=== PATIENT | female | born 1985 | race African-American/Black ===

== ENCOUNTER 2019-09-09 00:48 | Emergency (ER) | payer OTHER ==
[2019-09-09 00:52] VITALS: RESP 18; TEMP 98.1
[2019-09-09] MEDS ORDERED: SODIUM CHLORIDE 0.9% 1,000 ML IV STA (01:04)
[2019-09-09] MEDS ORDERED: METOCLOPRAMIDE 5 MG/ML 2 ML VIAL IVP STA (01:04)
[2019-09-09] MEDS ORDERED: diphenhydrAMINE 50 MG/ML 1 ML VIAL IVP STA (01:04)
[2019-09-09] MEDS ORDERED: DEXTROSE 5% IN WATER 1,000 ML IV ONE (01:05)
[2019-09-09 01:27] LABS: Anisocytosis Slight; Basophils % (A) 0 %; Eosinophils # (A) 0.2 k/uL (0-0.7); Eosinophils % (A) 2 %; HCT 36.5 % (34.0-46.0); HGB 11.8 gm/dL (11.4-16.0); Hypochromasia Slight; Lymphocytes # (A) 0.8 k/uL (1.0-4.8); Lymphocytes % (A) 9 %; MCH 24.6 pg (25.0-35.0); MCHC 32.3 g/dL (31.0-37.0); MCV 76.3 fL (80.0-100.0); Microcytosis Slight; Monocytes # (A) 0.4 k/uL (0-1.0); Monocytes % (A) 4 %; Neutrophils # (A) 8.2 k/uL (1.3-7.7); Neutrophils % (A) 85 %; Platelet Count 339 k/uL (150-450); RBC 4.79 m/uL (3.80-5.40); WBC 9.6 k/uL (3.8-10.6)
[2019-09-09 01:35] LABS: ALT 18 U/L (9-52); AST 23 U/L (14-36); African American GFR (CKD) >90 (>60 ml/min/1.73 sqM); Albumin 4.5 g/dL (3.5-5.0); Alkaline Phosphatase 59 U/L (38-126); Anion Gap 11 mmol/L; Blood Urea Nitrogen 6 mg/dL (7-17); Calcium 9.3 mg/dL (8.4-10.2); Carbon Dioxide 23 mmol/L (22-30); Chloride 104 mmol/L (98-107); Glucose 108 mg/dL (74-99); Non-African American GFR(CKD) >90 (>60 ml/min/1.73 sqM); Potassium 4.3 mmol/L (3.5-5.1); Sodium 138 mmol/L (137-145); Total Bilirubin 0.8 mg/dL (0.2-1.3); Total Protein 8.3 g/dL (6.3-8.2)
--- NOTE | 2019-09-09 01:58 | ED ---
Nausea/Vomiting/Diarrhea HPI - General Chief complaint: Nausea/Vomiting/Diarrhea Stated complaint: Vomiting Time Seen by Provider: 09/09/19 00:54 Source: patient Mode of arrival: ambulatory Limitations: no limitations - History of Present Illness Initial comments: 34-year-old female patient who is approximately 8 weeks presents to the emergency department today for evaluation of nausea and vomiting. Patient states that she has been vomiting daily for the last week. States she's been unable to keep down food or fluids. States she feels like she is dehydrated. States her muscles are sore. She denies any abdominal pain, cramping, vaginal bleeding, or vaginal discharge. She is . She denies any fever, chills, or diarrhea. Patient denies any recent rash, shortness breath, chest pain, back pain, numbness, tingling, dizziness, weakness, hematuria, dysuria, urinary urgency, urinary frequency, headache, visual changes, or any other complaints. She denies any recent travel or sick contacts. - Related Data Home Medications Medication Instructions Recorded Confirmed Ferrous Sulfate [Feosol] 325 mg PO DAILY 09/27/16 10/01/16 Pnv,Calcium 72/Iron/Folic Acid 1 tab PO DAILY 09/27/16 10/01/16 [ Plus Tablet] Previous Rx's Medication Instructions Recorded Acetaminophen-Codeine 300-30mg 1 - 2 each PO Q4HR PRN #30 tab 10/02/16 [Tylenol w/codeine #3] Ibuprofen [Motrin] 600 mg PO Q6HR PRN #40 tab 10/02/16 Metoclopramide [Reglan] 10 mg PO Q8H PRN #10 tab 09/09/19 Allergies Allergy/AdvReac Type Severity Reaction Status Date / Time No Known Allergies Allergy Verified 10/01/16 02:09 Review of Systems ROS Statement: Those systems with pertinent positive or pertinent negative responses have been documented in the HPI. ROS Other: All systems not noted in ROS Statement are negative. Past Medical History Past Medical History: No Reported History History of Any Multi-Drug Resistant Organisms: None Reported Past Surgical History: Appendectomy, Cholecystectomy, Hernia Repair Past Anesthesia/Blood Transfusion Reactions: No Reported Reaction Past Psychological History: No Psychological Hx Reported Smoking Status: Never smoker Past Alcohol Use History: None Reported Past Drug Use History: None Reported - Past Family History Mother Additional Family Medical History / Comment(s): cholycystectomy General Exam Limitations: no limitations General appearance: alert, in no apparent distress, other (This is a well- developed, well-nourished adult female patient in no acute distress with vital signs upon presentation are temperature 98.1F, pulse is no 4, respirations 18, blood pressure 129/83, pulse ox 100% on room air per) Eye exam: Present: normal appearance, PERRL, EOMI. Absent: scleral icterus, conjunctival injection, periorbital swelling ENT exam: Present: normal exam, normal oropharynx, mucous membranes moist Respiratory exam: Present: normal lung sounds bilaterally. Absent: respiratory distress, wheezes, rales, rhonchi, stridor Cardiovascular Exam: Present: regular rate, normal rhythm, normal heart sounds. Absent: systolic murmur, diastolic murmur, rubs, gallop, clicks GI/Abdominal exam: Present: soft, normal bowel sounds. Absent: distended, tenderness, guarding, rebound, rigid Neurological exam: Present: alert, oriented X3, CN II-XII intact Psychiatric exam: Present: normal affect, normal mood Skin exam: Present: warm, dry, intact, normal color. Absent: rash Course Vital Signs 09/09/19 09/09/19 00:49 02:00 Temperature 98.1 F Pulse Rate 104 H 92 Respiratory 18 18 Rate Blood Pressure 129/83 126/76 O2 Sat by Pulse 100 97 Oximetry - Reevaluation(s) Reevaluation #1: 09/09/19 02:00 Bedside ultrasound was performed, there was evidence for intrauterine , cardiac activity noted. Medical Decision Making - Medical Decision Making 34-year-old female patient who is approximately 8 weeks presents to the emergency department today for evaluation of nausea and vomiting 5 days. Candelario diarrhea. No fever. Vital signs are within normal ranges. Labs reviewed and were unremarkable. No evidence for urinary tract infection. There is an elevated glucose in her urine however she was receiving dextrose 5% as an infusion at time of urine collection. She had no vomiting episodes on the emergency department. Upon reevaluation she is feeling better. Bedside ultrasound did show cardiac activity and intrauterine . She will be discharged to follow-up with her [facility] for recheck in 1-2 days. Return parameters discussed in detail. She verbalizes understanding and agrees with this plan. - Lab Data Result diagrams: 09/09/19 01:17 09/09/19 01:17 Lab Results 09/09/19 09/09/19 09/09/19 Range/Units 01:17 01:17 02:45 WBC 9.6 (3.8-10.6) k/uL RBC 4.79 (3.80-5.40) m/uL Hgb 11.8 (11.4-16.0) gm/dL Hct 36.5 (34.0-46.0) % MCV 76.3 L (80.0-100.0) fL MCH 24.6 L (25.0-35.0) pg MCHC 32.3 (31.0-37.0) g/dL RDW 16.0 H (11.5-15.5) % Plt Count 339 (150-450) k/uL Neutrophils % 85 % Lymphocytes % 9 % Monocytes % 4 % Eosinophils % 2 % Basophils % 0 % Neutrophils # 8.2 H (1.3-7.7) k/uL Lymphocytes # 0.8 L (1.0-4.8) k/uL Monocytes # 0.4 (0-1.0) k/uL Eosinophils # 0.2 (0-0.7) k/uL Basophils # 0.0 (0-0.2) k/uL Hypochromasia Slight Anisocytosis Slight Microcytosis Slight Sodium 138 (137-145) mmol/L Potassium 4.3 (3.5-5.1) mmol/L Chloride 104 (98-107) mmol/L Carbon Dioxide 23 (22-30) mmol/L Anion Gap 11 mmol/L BUN 6 L (7-17) mg/dL Creatinine 0.60 (0.52-1.04) mg/dL Est GFR (CKD-EPI)AfAm >90 (>60 ml/min/1.73 sqM) Est GFR (CKD-EPI)NonAf >90 (>60 ml/min/1.73 sqM) Glucose 108 H (74-99) mg/dL Calcium 9.3 (8.4-10.2) mg/dL Total Bilirubin 0.8 (0.2-1.3) mg/dL AST 23 (14-36) U/L ALT 18 (9-52) U/L Alkaline Phosphatase 59 (38-126) U/L Total Protein 8.3 H (6.3-8.2) g/dL Albumin 4.5 (3.5-5.0) g/dL Lipase 107 (23-300) U/L Urine Color Yellow Urine Appearance Clear (Clear) Urine pH 6.0 (5.0-8.0) Ur Specific [place] 1.011 (1.001-1.035) Urine Protein Negative (Negative) Urine Glucose (UA) 4+ H (Negative) Urine Ketones Negative (Negative) Urine Blood Negative (Negative) Urine Nitrite Negative (Negative) Urine Bilirubin Negative (Negative) Urine Urobilinogen 2.0 (<2.0) mg/dL Ur Leukocyte Esterase Negative (Negative) Disposition Clinical Impression: Vomiting during Disposition: HOME SELF-CARE Condition: Good Instructions (If sedation given, give patient instructions): Nausea and Vomiting in (ED) Additional Instructions: Try to eat small more frequent meals. Start with clear liquid diet and advance as tolerated. Take medication as directed. Follow-up with your primary care physician and your [facility] for recheck as soon as possible. Return to the emergency department immediately for any new, worsening, or concerning symptoms. Prescriptions: Metoclopramide [Reglan] 10 mg PO Q8H PRN #10 tab PRN Reason: Vomiting Is patient prescribed a controlled substance at d/c from ED?: No Referrals: None,Stated [Primary Care Provider] - 1-2 days Time of Disposition: 03:02
[2019-09-09 02:18] VITALS: BP 126/76; PULSE 92
[2019-09-09 02:51] LABS: Appearance,Urine Clear (Clear); Bilirubin,Urine Negative (Negative); Blood,Urine Negative (Negative); Color,Urine Yellow; Glucose,Urine (UA) 4+ (Negative); Ketones,Urine Negative (Negative); Leukocyte Esterase,Urine Negative (Negative); Nitrite,Urine Negative (Negative); Protein,Urine Negative (Negative); Specific Gravity,Urine 1.011 (1.001-1.035)
== END 2019-09-09 03:05 | disposition home or self-care (01) ==
LOC: EC 00:48
DX: O21.9 Vomiting of pregnancy, unspecified (principal); Z3A.08 8 weeks gestation of pregnancy
CPT/HCPCS: 36415; 80053; 81003; 83690; 85025; 96361; 96374; 96375; 99284

== ENCOUNTER → 2019-10-08 | Outpatient (CLI) | payer OTHER ==
--- NOTE | 2019-10-08 11:45 | US ---
EXAMINATION TYPE: Ultrasound OB <= 14 week fetus DATE OF EXAM: 10/08/2019 9:23 AM COMPARISON: NONE CLINICAL HISTORY: 34-year-old female Z36 CONFIRM DATES. Patient states last LMP was in July. Date s. EXAM PERFORMED: Transabdominal (TA) FINDINGS: EXAM MEASUREMENTS: GESTATIONAL AGE / DATING Dates by LMP: Exact LMP unknown Dates by First Scan: No previous, this is first scan Dates by Current Scan for: (12 weeks/2 days) EDC: 04/19/2020 MATERNAL ANATOMY Uterus: 13.5 x 9.3 x 8.0 cm Right Ovary: 5.9 x 4.6 x 4.5 cm - Right cystic appearing lesion with multiple thin internal septations = 5.0 x 4.4 x 3.8 cm Left Ovary: 6.2 x 4.9 x 4.2 cm -Simple cyst measuring = 4.5 x 4.1 x 4.5 cm Post CDS / Adnexa: no free fluid Presence of free fluid: no Presence of subchorionic bleed: Area of 1.4 cm hypoechogenicity inferior to the gestational sac. GESTATION / SURVEY CRL: 5.5 cm (12 weeks/2 days) MSD: seen, not measured Yolk Sac (normal less than 6mm): Not visualized Heart Rate: 160 bpm Rhythm: Normal IUP: Viable IUP Nuchal Translucency 10-14wks (normal less than 3mm): 1.1 mm Date of LMP: Unknown, Beta HcG (if available): Not available at this time IMPRESSION: 1. Single live intrauterine with gestational age of 12 weeks 2 days by LMP. 2. Suspect a small inferior perigestational bleed measuring 1.4 cm. 3. Complex cyst of the right ovary measuring 5.0 cm demonstrating multiple thin internal septations. A resolving hemorrhagic cyst is possible. 6-8 week follow-up recommended to ensure involution. A cyst ic ovarian neoplasm is not excluded at this time. 4. A 4.5 cm simple cyst within the left ovary can also be reassessed at follow-up. 5. In addition, complete survey recommended at 18-20 weeks.
== END | disposition home or self-care (01) ==
LOC: RADUSWWP 09:02
PROVIDERS: ATTEND Obstetrics & Gynecology
DX: Z36.89 Encounter for other specified antenatal screening (principal); O65.5 Obstructed labor due to abnormality of maternal pelvic organs; O34.81 Maternal care for other abnormalities of pelvic organs, first trimester; N83.201 Unspecified ovarian cyst, right side; N83.202 Unspecified ovarian cyst, left side; Z3A.12 12 weeks gestation of pregnancy
CPT/HCPCS: 76801; 76813

== ENCOUNTER → 2020-03-08 | Outpatient (CLI) | payer OTHER | END | disposition home or self-care (01) | LOC: LABWHC1 10:40 | PROVIDERS: ATTEND Obstetrics & Gynecology | DX: Z34.83 Encounter for supervision of other normal pregnancy, third trimester (principal) | CPT/HCPCS: 86850; 86900; 86901 ==

== ENCOUNTER 2020-04-10 19:30 | Outpatient (CLI) | payer OTHER ==
[2020-04-10 20:15] VITALS: BP 120/63; PULSE 97; RESP 18; TEMP 97.4
--- NOTE | 2020-04-11 06:47 | P.MSEPDOC ---
Presenting Problems - Arrival Data Date of Arrival on Unit: 04/10/20 Time of Arrival on Unit: 19:30 Mode of Transport: Ambulatory - Complaint OB-Reason for Admission/Chief Complaint: Pain Comment: constant pain in her back and radiates down her legs, increases when she is up walking Medical History - Information : 6 Para: 5 Term: 4 : 1 Abortions: Spontaneous or Elective: 0 Number of Living Children: 5 - Gestational Age Gestational Age by VALERIO (wks/days): 38 Weeks and 5 Days - History Complications: GDM Review of Systems - Review of Systems Constitutional: No problems Breast: No problems ENT: No problems Cardiovascular: No problems Respiratory: No problems Gastrointestinal: No problems Genitourinary: No problems Musculoskeletal: No problems Neurological: No problems Skin: No problems Vital Signs - Temperature Temperature: 97.4 F Temperature Source: Temporal Artery Scan - Pulse Right Brachial Pulse Rate: 97 Pulse Assessment Method: Automatic Cuff - Respirations Respiratory Rate: 18 Oxygen Delivery Method: Room Air - Blood Pressure Right Arm Blood Pressure: 120/63 Blood Pressure Mean: 82 Blood Pressure Source: Automatic Cuff Medical Screen Scoring (Pre) - Cervical Exam Dilation: 1-3 cm = 1 Effacement: More than 50% = 2 Membranes: Intact - Uterine Contractions Frequency: N/A Duration: N/A Intensity: N/A - Maternal Vital Signs Maternal Temperature: N/A Maternal Blood Pressure: N/A Signs of Preeclampsia: N/A Maternal Respirations: N/A - Maternal Trauma Maternal Trauma: N/A - Assessment - Baby A Baseline FHR: 140 Heart Rate - NICHD Category: Category I (Normal) = 0 NST: Reactive Position: N/A Station: N/A - Total Score - Baby A Total Score - Baby A: 3 - Total Score - Baby B Total Score - Baby B: 3 - Total Score - Baby C Total Score - Baby C: 3 - Level of Risk - Baby A Level of Risk - Baby A: Low (0-5) - Level of Risk - Baby B Level of Risk - Baby B: Low (0-5) - Level of Risk - Baby C Level of Risk - Baby C: Low (0-5) Physician Notification (Pre) - Physician Notified Physician Notified Date: 04/10/20 Physician Notified Time: 19:50 Disposition - Disposition OB Disposition: Triage, Discharge to home Discharge Date: 04/10/20 Discharge Time: 20:15 I agree with the RN Medical Screening Exam: Yes Risk & Benefit of care provided described in d/c instruction: Yes Diagnosis: FALSE LABOR AT OR AFTER 37 COMPLETED WEEKS OF GESTATION
== END 2020-04-10 20:15 | disposition home or self-care (01) ==
LOC: FBPOP 19:30
PROVIDERS: ATTEND Obstetrics & Gynecology
DX: O47.1 False labor at or after 37 completed weeks of gestation (principal); Z3A.38 38 weeks gestation of pregnancy
CPT/HCPCS: 59025; G0463; 99213

== ENCOUNTER 2020-04-14 06:15 | Inpatient (IN) | payer OTHER ==
[2020-04-14] MEDS ORDERED: CARBOPROST TROMETHAMINE 250 MCG/ML 1 ML AMP IM PRN (06:52)
[2020-04-14] MEDS ORDERED: LIDOCAINE 0.5% (PF) 5 MG/ML (50 ML SDV) SQ PRN (06:52)
[2020-04-14] MEDS ORDERED: OXYTOCIN 10 UNIT/ML 1 ML VIAL IM PRN (06:52)
[2020-04-14] MEDS ORDERED: METHYLERGONOVINE 0.2 MG/ML 1 ML AMP IM PRN (06:52)
[2020-04-14] MEDS ORDERED: TERBUTALINE 1 MG/ML VIAL SQ PRN (06:52)
[2020-04-14] MEDS ORDERED: OXYTOCIN 30 UNITS/500 ML NS 30 UNIT in SALINE 1 500ML.BAG IV SCH (07:00)
[2020-04-14] MEDS: LACTATED RINGERS 1,000 ML IV SCH ×2 (07:02→11:51)
[2020-04-14 07:21] LABS: Anisocytosis Slight; Basophils % (A) 0 %; Eosinophils # (A) 0.1 k/uL (0-0.7); Eosinophils % (A) 1 %; HCT 32.7 % (34.0-46.0); HGB 10.6 gm/dL (11.4-16.0); Hypochromasia Moderate; Lymphocytes % (A) 24 %; MCH 25.4 pg (25.0-35.0); MCHC 32.3 g/dL (31.0-37.0); MCV 78.6 fL (80.0-100.0); Mean Platelet Volume 8.1; Microcytosis Slight; Monocytes # (A) 0.5 k/uL (0-1.0); Monocytes % (A) 7 %; Neutrophils # (A) 5.5 k/uL (1.3-7.7); Neutrophils % (A) 66 %; Platelet Count 259 k/uL (150-450); RBC 4.16 m/uL (3.80-5.40); WBC 8.4 k/uL (3.8-10.6)
[2020-04-14 08:27] LABS: Glucose,Whole Blood 113 mg/dL (75-99)
--- NOTE | 2020-04-14 08:28 | P.HPOB ---
History of Present Illness H&P Date: 04/14/20 Chief Complaint: Intrauterine at term: Gestational diabetes Patient is a 35-year-old at 39 weeks 2 days' gestation who arrives for induction of labor. Her course has been complicated by gestational diabetes and late onset of polyhydramnios. Her gestational diabetes was diet controlled and while she did have some early fasting sugars were higher 2 who our postprandials had been fine. She coordinated with endocrine for her sugars. At her last ultrasound she is noted to have baby at greater than the 95th percentile. This in a gestational diabetic is cost for concern due to risk of shoulder dystocia. She however has had several babies that are big and were macrosomic at time of delivery including her last baby that weighed 8 lbs. 9 oz. We had a very long and thorough discussion on recommending section in someone who has had a baby that is macrosomic and diabetic. She refuses this and understands risks of shoulder dystocia including permanent brachial plexus injuries even potentially . There are neurologic issues occur also Accompanied and she understands these risks and refuses to do a section. This was discussed with her on 2 separate occasions in the office and once by phone. She understands my concern and understands that there is a risk that something like shoulder dystocia could Apsley happened during this delivery process. At her last ultrasound there is also notation of polyhydramnios. This was done just 2 days ago and therefore torch titers were not drawn. Likely this is due to her blood sugars. Will order torch titers while she's in the hospital. All other questions are answered for her and her significant other. Artificial rupture membranes was performed and clear fluid is noted. She is dilated 2 cm 80% effaced and -3 station. Clear fluid is noted. A category 1 tracing was noted. Past Medical History Past Medical History: No Reported History Additional Past Medical History / Comment(s): gestational diabetic diet controlled History of Any Multi-Drug Resistant Organisms: None Reported Past Surgical History: Appendectomy, Cholecystectomy, Hernia Repair Past Anesthesia/Blood Transfusion Reactions: No Reported Reaction Past Psychological History: No Psychological Hx Reported Smoking Status: Never smoker Past Alcohol Use History: None Reported Past Drug Use History: None Reported - Past Family History Mother Additional Family Medical History / Comment(s): cholycystectomy Medications and Allergies Home Medications Medication Instructions Recorded Confirmed Type Ferrous Sulfate [Feosol] 325 mg PO DAILY 12/23/16 07/10/20 History Pnv,Calcium 72/Iron/Folic Acid 1 tab PO DAILY 09/27/16 04/14/20 History [ Plus Tablet] Allergies Allergy/AdvReac Type Severity Reaction Status Date / Time No Known Allergies Allergy Verified 04/14/20 06:52 Exam Osteopathic Statement: *. No significant issues noted on an osteopathic structural exam other than those noted in the History and Physical/Consult. Intake and Output 04/13/20 04/14/20 04/14/20 22:59 06:59 14:59 Other: Weight 111.584 kg 111.584 kg - OBG Physical Exam Breast: both: normal (no masses) Abdomen: bowel sounds normal, no diffuse tenderness, no bruit present, no guarding noted, no hepatomegaly, no splenomegaly, no mass Vulva: both: normal Vagina: normal moisture, no discharge Cervix: no lesion, no discharge Uterus: normal size, normal contour Adnexa: both: normal Anus/Rectum: normal perianal skin, no rectal mass, no hemorrhoids, heme negative Results Result Diagrams: 04/14/20 07:05 Abnormal Lab Results - Last 24 Hours (Table) 04/14/20 Range/Units 07:05 Hgb 10.6 L (11.4-16.0) gm/dL Hct 32.7 L (34.0-46.0) % MCV 78.6 L (80.0-100.0) fL RDW 19.0 H (11.5-15.5) %
[2020-04-14] MEDS ORDERED: fentaNYL (PF) 50 MCG/ML 5 ML AMP ONE (11:20)
[2020-04-14] MEDS ORDERED: SODIUM CHLORIDE 0.9% 100 ML BAG ONE (11:20)
[2020-04-14] MEDS ORDERED: ROPIVACAINE 5MG/ML 20ML VIAL ONE (11:20)
[2020-04-14] MEDS ORDERED: WITCH HAZEL 1 EACH MED..PAD TOPICAL PRN (15:21)
[2020-04-14] MEDS ORDERED: LANOLIN CREAM 5 GM TUBE TOPICAL PRN (15:21)
[2020-04-14] MEDS ORDERED: SIMETHICONE 80 MG CHEWABLE PO PRN (15:21)
[2020-04-14] MEDS ORDERED: diphenhydrAMINE 50 MG CAP PO PRN (15:21)
[2020-04-14] MEDS ORDERED: diphenhydrAMINE 25 MG CAP PO PRN (15:21)
[2020-04-14] MEDS ORDERED: diphenhydrAMINE 50 MG/ML 1 ML VIAL IVP PRN ×2 (15:21)
[2020-04-14] MEDS ORDERED: ZOLPIDEM 5 MG TAB PO PRN (15:21)
[2020-04-14] MEDS ORDERED: BENZOCAINE/MENTHOL SPRAY 1 GM/SPRAY AEROSOL TOPICAL PRN (15:21)
[2020-04-14] MEDS ORDERED: HYDROCORTISONE 2.5% RECTAL CREAM 30 GM TUBE RECTAL PRN (15:21)
[2020-04-14] MEDS ORDERED: OXYTOCIN 20 UNITS/1000 ML NS 1,000 ML IV SCH (15:30)
[2020-04-14] MEDS: IBUPROFEN 600 MG TAB PO PRN (15:32)
--- NOTE | 2020-04-14 16:38 | P.PROBDLV ---
Vaginal Delivery Note - . Vaginal Delivery Note: Patient progressed complete and pushing with spontaneous vaginal delivery of a viable male over an intact perineum. Falling deliver the head from left occiput anterior position anterior posterior shoulders were easily delivered with gentle downward upper traction followed by the remainder the baby. Mouth nares were then bulb suctioned and baby was placed mother's abdomen where the umbilical cord was allowed to pulsate first 30 seconds prior to clamping and cutting. Once this was accomplished, baby was attended by nursery personnel. Placenta was then delivered intact Pitocin was added to the IV. scores are 9 and 10 at one and 5 minutes respectively and the weight was 7 lbs. 15 oz. Both mother and baby are stable following delivery.
[2020-04-14] MEDS: ACETAMINOPHEN TAB 325 MG TAB PO PRN (19:37)
[2020-04-14] MEDS: SENNOSIDES-DOCUSATE SODIUM 1 EACH TAB PO SCH (19:37)
[2020-04-14] MEDS: Rhogam IMMUNE GLOBULIN 1,500 UNIT/1 ML IM ONE ×2 (22:34→22:36)
[2020-04-15] MEDS: IBUPROFEN 600 MG TAB PO PRN ×3 (00:57→14:28)
[2020-04-15] MEDS: LACTATED RINGERS 1,000 ML IV SCH (01:16)
[2020-04-15] MEDS: ACETAMINOPHEN TAB 325 MG TAB PO PRN (03:54)
[2020-04-15 06:23] LABS: Anisocytosis Slight; Basophils % (A) 0 %; Eosinophils # (A) 0.2 k/uL (0-0.7); Eosinophils % (A) 2 %; HCT 31.3 % (34.0-46.0); HGB 9.6 gm/dL (11.4-16.0); Hypochromasia Slight; Lymphocytes # (A) 2.1 k/uL (1.0-4.8); Lymphocytes % (A) 24 %; MCH 24.2 pg (25.0-35.0); MCHC 30.6 g/dL (31.0-37.0); Mean Platelet Volume 7.6; Microcytosis Slight; Monocytes # (A) 0.6 k/uL (0-1.0); Monocytes % (A) 7 %; Neutrophils # (A) 5.5 k/uL (1.3-7.7); Neutrophils % (A) 64 %; Platelet Count 247 k/uL (150-450); RBC 3.97 m/uL (3.80-5.40); RDW 19.5 % (11.5-15.5); WBC 8.6 k/uL (3.8-10.6)
[2020-04-15] MEDS: SENNOSIDES-DOCUSATE SODIUM 1 EACH TAB PO SCH (08:00)
[2020-04-15 08:36] VITALS: BP 109/58; PULSE 72; RESP 16; TEMP 97.9
--- NOTE | 2020-04-15 08:44 | P.DS ---
Providers Date of admission: 04/14/20 06:26 Expected date of discharge: 04/15/20 Attending physician: Catrachito Sheth Primary care physician: Stated None Hospital Course: Patient is doing very well day 1. She is ambulating, voiding and tolerating her diet. She voices no complaints. Vital signs are stable and afebrile. Discharge instructions were thoroughly reviewed and a prescription for Motrin has been provided. On physical exam vital signs are stable and afebrile. Heart regular, lungs clear, extremities without pain. Abdomen soft uterus is firm and lochia is reported light. Assessment day 1. Plan discharged home follow up with me in 6 weeks. Patient Condition at Discharge: Good Plan - Discharge Summary New Discharge Prescriptions: New Ibuprofen [Motrin] 600 mg PO Q6HR PRN #30 tab PRN Reason: Pain No Action Ferrous Sulfate [Feosol] 325 mg PO DAILY Pnv,Calcium 72/Iron/Folic Acid [ Plus Tablet] 1 tab PO DAILY Discharge Medication List Ferrous Sulfate [Feosol] 325 mg PO DAILY 09/27/16 [History] Pnv,Calcium 72/Iron/Folic Acid [ Plus Tablet] 1 tab PO DAILY 09/27/16 [History] Ibuprofen [Motrin] 600 mg PO Q6HR PRN #30 tab 04/15/20 [Rx] Follow up Appointment(s)/Referral(s): Catrachito Sheth DO [Doctor of Osteopathic Medicine] - 6 Weeks Activity/Diet/Wound Care/Special Instructions: No heavy lifting, limit stairs and driving, and pelvic rest. If any high temperatures, heavy bleeding, or severe pain call my office Discharge Disposition: HOME SELF-CARE
[2020-04-17 04:55] LABS: Herpes simplex I and/or II IgM 1.76 INDEX (<=0.90); Herpes simplex IgG II Ab 0.43 (< or = 0.90); Toxoplasma Antibody (IgG) <3.0 IU/mL (<7.2)
== END 2020-04-15 15:04 | disposition home or self-care (01) | DRG 807 ==
LOC: 4FBP 06:26
PROVIDERS: ADMIT Obstetrics & Gynecology; ATTEND Obstetrics & Gynecology
PROC: 10E0XZZ Delivery of Products of Conception, External Approach (ICD-10-PCS; principal; 2020-04-14)
PROC: 3E0R3BZ Introduction of Anesthetic Agent into Spinal Canal, Percutaneous Approach (ICD-10-PCS; 2020-04-14)
DX: O24.420 Gestational diabetes mellitus in childbirth, diet controlled (principal); Z37.0 Single live birth; O40.3XX0 Polyhydramnios, third trimester, not applicable or unspecified; Z3A.39 39 weeks gestation of pregnancy; Z98.890 Other specified postprocedural states; Z79.899 Other long term (current) drug therapy; Z90.49 Acquired absence of other specified parts of digestive tract
CPT/HCPCS: 85025; 85461; 86644; 86645; 86694; 86695; 86696; 86762; 86777; 86778; 86850; 86900; 86901

== ENCOUNTER → 2020-06-08 | Outpatient (CLI) | payer OTHER ==
--- NOTE | 2020-06-08 11:10 | US ---
EXAMINATION TYPE: US pelvic complete DATE OF EXAM: 06/08/2020 COMPARISON: 10/08/2019 CLINICAL HISTORY: 35-year-old female N83.20 Previous Left Ovarian Cyst. Left ovarian cyst seen on pre vious OB ultrasound in October, 6, para 6, post 6 weeks TECHNIQUE: Transabdominal sonographic images of the pelvis were acquired. Date of LMP: July 2019 FINDINGS: EXAM MEASUREMENTS: Uterus: 9.4 x 5.6 x 6.7 cm Endometrial Stripe: 0.7 cm Right Ovary: 4.9 x 2.1 x 4.0 cm Left Ovary: 3.3 x 2.1 x 3.4 cm 1. Uterus: heterogeneous 2. Endometrium: appears wnl 3. Right Ovary: Either a cluster of cysts/follicles or a complex cyst with internal septations and l obulated contour measuring up to 3.0 x 2.1 x 1.9cm. Complex cystic lesion of the right ovary on 020 measured 5.0 x 3.8 x 4.4 cm. 4. Left Ovary: Follicular change measuring up to 1 cm. 5. Bilateral Adnexa: wnl 6. Posterior cul-de-sac: wnl IMPRESSION: 1. Either a cluster of cysts/follicles versus a complex, septated cyst of the right ovary measuring 3 .0 x 2.1 x 1.9 cm. A complex, septated cystic lesion of the right ovary on 10/08/2019 previously measur ed 5.0 x 4.4 x 3.8 mm. Continued six-month follow-up recommended. 2. Normal follicular change in the left ovary. The previous large 4.5 cm cyst has resolved.
== END | disposition home or self-care (01) ==
LOC: RADUSWWP 08:19
PROVIDERS: ATTEND Obstetrics & Gynecology
DX: N83.202 Unspecified ovarian cyst, left side (principal); N83.201 Unspecified ovarian cyst, right side
CPT/HCPCS: 76856

== ENCOUNTER 2022-09-15 08:31 | Emergency (ER) | payer OTHER ==
[2022-09-15 08:48] VITALS: TEMP 98.3
--- NOTE | 2022-09-15 09:37 | ED ---
Abdominal Pain HPI - General Chief Complaint: Abdominal Pain Stated Complaint: Abd Pain Time Seen by Provider: 09/15/22 08:59 Source: patient Mode of arrival: ambulatory Limitations: no limitations - History of Present Illness Initial Comments: Patient is a pleasant 37 year old female presenting to the emergency room from home with complaints of abdominal pain, nausea and vomiting. She reports her last bowel movement was 2 days ago but states that her constipation feeling is different. She reports pain in her entire lower abdomen with increase intensity to the right side. She denies any aggravating or alleviating factors. She denies any blood in her vomit or previous bowel movement. She does report a fever yesterday but denies any fevers or chills today. She denies any chest pain, shortness of breath, upper abdominal pain, flank pain, urinary frequency, or dysuria. With the exception of gestational diabetes she has no significant past medical history. - Related Data Home Medications Medication Instructions Recorded Confirmed Ferrous Sulfate [Feosol] 325 mg PO DAILY 09/27/16 04/14/20 Pnv,Calcium 72/Iron/Folic Acid 1 tab PO DAILY 09/27/16 04/14/20 [ Plus Tablet] Previous Rx's Medication Instructions Recorded Ibuprofen [Motrin] 600 mg PO Q6HR PRN #30 tab 04/15/20 Allergies Allergy/AdvReac Type Severity Reaction Status Date / Time No Known Allergies Allergy Verified 09/15/22 08:48 Review of Systems ROS Statement: Those systems with pertinent positive or pertinent negative responses have been documented in the HPI. ROS Other: All systems not noted in ROS Statement are negative. Past Medical History Past Medical History: No Reported History Additional Past Medical History / Comment(s): gestational diabetic diet controlled History of Any Multi-Drug Resistant Organisms: None Reported Past Surgical History: Appendectomy, Cholecystectomy, Hernia Repair Past Anesthesia/Blood Transfusion Reactions: No Reported Reaction Past Psychological History: No Psychological Hx Reported Smoking Status: Never smoker Past Alcohol Use History: None Reported Past Drug Use History: None Reported - Past Family History Mother Additional Family Medical History / Comment(s): cholycystectomy General Exam Limitations: no limitations General appearance: alert, in no apparent distress, obese Head exam: Present: atraumatic, normocephalic, normal inspection Eye exam: Present: normal appearance, PERRL, EOMI. Absent: scleral icterus, conjunctival injection, periorbital swelling ENT exam: Present: normal exam, mucous membranes moist Neck exam: Present: normal inspection, full ROM. Absent: tenderness, lymphadenopathy Respiratory exam: Present: normal lung sounds bilaterally. Absent: respiratory distress, wheezes, rales, rhonchi, stridor Cardiovascular Exam: Present: regular rate, normal rhythm, normal heart sounds. Absent: systolic murmur, diastolic murmur, rubs, gallop, clicks GI/Abdominal exam: Present: soft, normal bowel sounds. Absent: distended, tenderness, guarding, rebound, rigid Rectal exam: Present: deferred Extremities exam: Present: normal inspection. Absent: pedal edema, joint swelling Back exam: Present: normal inspection. Absent: CVA tenderness (R), CVA tenderness (L) Neurological exam: Present: alert, oriented X3, CN II-XII intact Psychiatric exam: Present: normal affect, normal mood Skin exam: Present: warm, dry, intact, normal color. Absent: rash Course Vital Signs 09/15/22 09/15/22 08:46 11:52 Temperature 98.3 F Pulse Rate 104 H 77 Respiratory 18 15 Rate Blood Pressure 127/74 129/92 O2 Sat by Pulse 97 100 Oximetry Medical Decision Making - Medical Decision Making 37 year old AAF presenting with lower abdominal pain primarily to right side with associated nausea, vomiting and fever. Not currently febrile or nauseated, no indication for antiemetics or antipyretics. Pain intermittent and not severe at this time denies analgesic need. Will start work up for lower abdominal pain with UA with reflex, urine Hcg, CBC, CMP, amylase, lipase along with Covid and influenza swabs. Will obtain CT abdomen/pelvis due to abdominal pain primary location ambiguity in the lower quadrants. CBC without leukocytosis, mild anemia at 10.6 with hypochromasia noted consistent with iron deficiency anemia. CMP with glucose elevation at 110 otherwise no abnormalities. Amylase and lipase normal. UA with trace blood and trace protein, no leukocyte esterase or bacteria. Flu negative. COVID positive. Complaining of increase pain will give dose of tordol. CT scan abdomen and pelvis image interpreted by me demonstrates no obstruction or bowel inflammation. Right ovarian cyst. Radiology report also reviewed. No indication for further diagnostic imaging or laboratory studies. Will discharge home in stable condition with supportive care for COVID symptoms along with ovarian cyst. Quarantine and return parameters reviewed. Paxlovid offered and declined. Questions and concerns answered. Case discussed with Dr. Goetz. - Lab Data Result diagrams: 09/15/22 09:30 09/15/22 09:30 Lab Results 09/15/22 09/15/22 09/15/22 Range/Units 09:30 09:30 09:30 WBC 5.7 (3.8-10.6) k/uL RBC 4.40 (3.80-5.40) m/uL Hgb 10.6 L (11.4-16.0) gm/dL Hct 33.7 L (34.0-46.0) % MCV 76.5 L (80.0-100.0) fL MCH 24.0 L (25.0-35.0) pg MCHC 31.4 (31.0-37.0) g/dL RDW 15.1 (11.5-15.5) % Plt Count 300 (150-450) k/uL MPV 7.8 Neutrophils % 60 % Lymphocytes % 24 % Monocytes % 6 % Eosinophils % 6 % Basophils % 0 % Neutrophils # 3.4 (1.3-7.7) k/uL Lymphocytes # 1.4 (1.0-4.8) k/uL Monocytes # 0.4 (0-1.0) k/uL Eosinophils # 0.4 (0-0.7) k/uL Basophils # 0.0 (0-0.2) k/uL Hypochromasia Moderate Microcytosis Slight Sodium (137-145) mmol/L Potassium (3.5-5.1) mmol/L Chloride (98-107) mmol/L Carbon Dioxide (22-30) mmol/L Anion Gap mmol/L BUN (7-17) mg/dL Creatinine (0.52-1.04) mg/dL Est GFR (CKD-EPI)AfAm (>60 ml/min/1.73 sqM) Est GFR (CKD-EPI)NonAf (>60 ml/min/1.73 sqM) Glucose (74-99) mg/dL Calcium (8.4-10.2) mg/dL Total Bilirubin (0.2-1.3) mg/dL AST (14-36) U/L ALT (4-34) U/L Alkaline Phosphatase (38-126) U/L Total Protein (6.3-8.2) g/dL Albumin (3.5-5.0) g/dL Amylase (30-110) U/L Lipase (23-300) U/L Urine Color Yellow Urine Appearance Clear (Clear) Urine pH 6.5 (5.0-8.0) Ur Specific [place] 1.035 (1.001-1.035) Urine Protein Trace H (Negative) Urine Glucose (UA) Negative (Negative) Urine Ketones Negative (Negative) Urine Blood Trace H (Negative) Urine Nitrite Negative (Negative) Urine Bilirubin Negative (Negative) Urine Urobilinogen 4.0 (<2.0) mg/dL Ur Leukocyte Esterase Negative (Negative) Urine RBC 5 (0-5) /hpf Urine WBC 1 (0-5) /hpf Ur Squamous Epith Cells <1 (0-4) /hpf Urine Mucus Few H (None) /hpf Urine HCG, Qual Not Detected (Not Detectd) Coronavirus (PCR) (Not Detectd) Influenza Type A RNA (Not Detectd) Influenza Type B (PCR) (Not Detectd) 09/15/22 09/15/22 09/15/22 Range/Units 09:30 09:30 09:30 WBC (3.8-10.6) k/uL RBC (3.80-5.40) m/uL Hgb (11.4-16.0) gm/dL Hct (34.0-46.0) % MCV (80.0-100.0) fL MCH (25.0-35.0) pg MCHC (31.0-37.0) g/dL RDW (11.5-15.5) % Plt Count (150-450) k/uL MPV Neutrophils % % Lymphocytes % % Monocytes % % Eosinophils % % Basophils % % Neutrophils # (1.3-7.7) k/uL Lymphocytes # (1.0-4.8) k/uL Monocytes # (0-1.0) k/uL Eosinophils # (0-0.7) k/uL Basophils # (0-0.2) k/uL Hypochromasia Microcytosis Sodium 140 (137-145) mmol/L Potassium 3.9 (3.5-5.1) mmol/L Chloride 106 (98-107) mmol/L Carbon Dioxide 28 (22-30) mmol/L Anion Gap 6 mmol/L BUN 8 (7-17) mg/dL Creatinine 0.67 (0.52-1.04) mg/dL Est GFR (CKD-EPI)AfAm >90 (>60 ml/min/1.73 sqM) Est GFR (CKD-EPI)NonAf >90 (>60 ml/min/1.73 sqM) Glucose 110 H (74-99) mg/dL Calcium 8.7 (8.4-10.2) mg/dL Total Bilirubin 0.2 (0.2-1.3) mg/dL AST 23 (14-36) U/L ALT 17 (4-34) U/L Alkaline Phosphatase 59 (38-126) U/L Total Protein 7.0 (6.3-8.2) g/dL Albumin 3.9 (3.5-5.0) g/dL Amylase 64 (30-110) U/L Lipase 83 (23-300) U/L Urine Color Urine Appearance (Clear) Urine pH (5.0-8.0) Ur Specific [place] (1.001-1.035) Urine Protein (Negative) Urine Glucose (UA) (Negative) Urine Ketones (Negative) Urine Blood (Negative) Urine Nitrite (Negative) Urine Bilirubin (Negative) Urine Urobilinogen (<2.0) mg/dL Ur Leukocyte Esterase (Negative) Urine RBC (0-5) /hpf Urine WBC (0-5) /hpf Ur Squamous Epith Cells (0-4) /hpf Urine Mucus (None) /hpf Urine HCG, Qual (Not Detectd) Coronavirus (PCR) Detected A (Not Detectd) Influenza Type A RNA Not Detected (Not Detectd) Influenza Type B (PCR) Not Detected (Not Detectd) - Radiology Data Radiology results: report reviewed, image reviewed Disposition Clinical Impression: COVID-19, Ovarian cyst, right Disposition: HOME SELF-CARE Condition: Stable Instructions (If sedation given, give patient instructions): Ovarian Cyst (ED), COVID-19 (Coronavirus Disease 2019) (ED) Additional Instructions: Please quarantine for 5 days after testing positive and restart quarantine if symptoms worsen. Please utilize Tylenol as needed for fevers and pain. Taking vitamin C, Zinc, vitamin D 50 mcg, and melatonin may help symptom recovery. Please return to the Emergency Department if symptoms worsen or any other concerns. Is patient prescribed a controlled substance at d/c from ED?: No Referrals: None,Stated [Primary Care Provider] - 1-2 days Time of Disposition: 11:45
[2022-09-15 09:51] LABS: Basophils % (A) 0 %; Eosinophils # (A) 0.4 k/uL (0-0.7); Eosinophils % (A) 6 %; HCT 33.7 % (34.0-46.0); HGB 10.6 gm/dL (11.4-16.0); Hypochromasia Moderate; Lymphocytes # (A) 1.4 k/uL (1.0-4.8); Lymphocytes % (A) 24 %; MCHC 31.4 g/dL (31.0-37.0); MCV 76.5 fL (80.0-100.0); Mean Platelet Volume 7.8; Microcytosis Slight; Monocytes # (A) 0.4 k/uL (0-1.0); Monocytes % (A) 6 %; Neutrophils # (A) 3.4 k/uL (1.3-7.7); Neutrophils % (A) 60 %; Platelet Count 300 k/uL (150-450); RDW 15.1 % (11.5-15.5); WBC 5.7 k/uL (3.8-10.6)
[2022-09-15 09:58] LABS: ALT 17 U/L (4-34); AST 23 U/L (14-36); African American GFR (CKD) >90 (>60 ml/min/1.73 sqM); Albumin 3.9 g/dL (3.5-5.0); Alkaline Phosphatase 59 U/L (38-126); Amylase 64 U/L (30-110); Anion Gap 6 mmol/L; Blood Urea Nitrogen 8 mg/dL (7-17); Calcium 8.7 mg/dL (8.4-10.2); Carbon Dioxide 28 mmol/L (22-30); Chloride 106 mmol/L (98-107); Glucose 110 mg/dL (74-99); Lipase 83 U/L (23-300); Non-African American GFR(CKD) >90 (>60 ml/min/1.73 sqM); Potassium 3.9 mmol/L (3.5-5.1); Sodium 140 mmol/L (137-145); Total Bilirubin 0.2 mg/dL (0.2-1.3)
[2022-09-15 10:00] LABS: Appearance,Urine Clear (Clear); Bilirubin,Urine Negative (Negative); Blood,Urine Trace (Negative); Color,Urine Yellow; Glucose,Urine (UA) Negative (Negative); Ketones,Urine Negative (Negative); Leukocyte Esterase,Urine Negative (Negative); Mucus,Urine Few /hpf; Nitrite,Urine Negative (Negative); PH, Urine 6.5 (5.0-8.0); Protein,Urine Trace (Negative); RBC,Urine 5 /hpf (0-5); Specific Gravity,Urine 1.035 (1.001-1.035); Squamous Epithelial Cell,Urine <1 /hpf (0-4); WBC,Urine 1 /hpf (0-5)
--- NOTE | 2022-09-15 10:30 | CT ---
EXAMINATION TYPE: CT abdomen pelvis wo con DATE OF EXAM: 09/15/2022 COMPARISON: None HISTORY: lower abdominal pain x1 day CT DLP: 1173.4 mGycm Examination of the solid and hollow viscera is limited given the lack of contrast. FINDINGS: LUNG BASES: No evidence for nodule. No evidence for infiltrate. LIVER/GB: Cholecystectomy clips are noted. No space-occupying hepatic lesion. PANCREAS: No pancreatic mass identified. No inflammatory process seen. SPLEEN: No evidence for splenomegaly. No intrasplenic lesions seen. ADRENALS: No adrenal nodules identified. No evidence for thickening. KIDNEYS: No evidence for renal mass. No nephrolithiasis. No hydronephrosis. BOWEL: The appendix is surgically absent. No evidence of bowel obstruction. No inflammatory process. Small hiatal hernia noted. Lymph nodes: No evidence for adenopathy greater than 1 cm. Abdominal aorta: Atheromatous changes seen. No evidence for aneurysm. Genital organs: There is a 2.3 cm hemorrhagic cyst right ovary. The uterus and ovaries are otherwise unremarkable. Other: No significant abnormality. IMPRESSION: There is a 2.3 cm hemorrhagic cyst right ovary.
[2022-09-15] MEDS ORDERED: KETOROLAC 15 MG/ML 1 ML VIAL IVP STA (10:45)
[2022-09-15 11:53] VITALS: BP 129/92; PULSE 77; RESP 15
== END 2022-09-15 11:53 | disposition home or self-care (01) ==
LOC: EC 08:31
DX: U07.1 COVID-19 (principal); N83.201 Unspecified ovarian cyst, right side
CPT/HCPCS: 36415; 80053; 82150; 83690; 85025; 81001; 81025; 87502; 87635; 74176; 99284; 96374; J1885

== ENCOUNTER 2022-09-26 14:31 | Emergency (ER) | payer OTHER ==
[2022-09-26 15:00] VITALS: PULSE 77; RESP 18; TEMP 98.1
[2022-09-26] MEDS ORDERED: ACETAMINOPHEN TAB 325 MG TAB PO STA (17:00)
--- NOTE | 2022-09-26 17:07 | ED ---
General Adult HPI - General Chief complaint: Extremity Injury, Upper Stated complaint: R hand lac Time Seen by Provider: 09/26/22 16:56 Source: patient, RN notes reviewed Mode of arrival: ambulatory Limitations: no limitations - History of Present Illness Initial comments: 37-year-old -Serbian female sitting emergency department for laceration. She states she was doing dishes when she reached into the sink and broken glass. He notes that the laceration painful she had a rapid to control the bleeding. She significant past medical history. She did not try anything for pain. She denies numbness, tingling, lightheadedness, dizziness. Vaccinations are up to date. - Related Data Home Medications Medication Instructions Recorded Confirmed Ferrous Sulfate [Feosol] 325 mg PO DAILY 09/27/16 04/14/20 Pnv,Calcium 72/Iron/Folic Acid 1 tab PO DAILY 09/27/16 04/14/20 [ Plus Tablet] Previous Rx's Medication Instructions Recorded Ibuprofen [Motrin] 600 mg PO Q6HR PRN #30 tab 04/15/20 Allergies Allergy/AdvReac Type Severity Reaction Status Date / Time No Known Allergies Allergy Verified 09/26/22 15:00 Review of Systems ROS Statement: Those systems with pertinent positive or pertinent negative responses have been documented in the HPI. ROS Other: All systems not noted in ROS Statement are negative. Past Medical History Past Medical History: No Reported History Additional Past Medical History / Comment(s): gestational diabetic diet controlled History of Any Multi-Drug Resistant Organisms: None Reported Past Surgical History: Appendectomy, Cholecystectomy, Hernia Repair Past Anesthesia/Blood Transfusion Reactions: No Reported Reaction Past Psychological History: No Psychological Hx Reported Smoking Status: Never smoker Past Alcohol Use History: None Reported Past Drug Use History: None Reported - Past Family History Mother Additional Family Medical History / Comment(s): cholycystectomy General Exam Limitations: no limitations General appearance: alert, in no apparent distress Head exam: Present: atraumatic, normocephalic, normal inspection Eye exam: Present: normal appearance, PERRL, EOMI. Absent: scleral icterus, conjunctival injection, periorbital swelling ENT exam: Present: normal exam, mucous membranes moist Neck exam: Present: normal inspection. Absent: tenderness, meningismus, lymphadenopathy Respiratory exam: Present: normal lung sounds bilaterally. Absent: respiratory distress, wheezes, rales, rhonchi, stridor Cardiovascular Exam: Present: regular rate, normal rhythm, normal heart sounds. Absent: systolic murmur, diastolic murmur, rubs, gallop, clicks GI/Abdominal exam: Present: soft, normal bowel sounds. Absent: distended, tenderness, guarding, rebound, rigid Extremities exam: Present: normal inspection Right Hand Wrist exam: Present: normal inspection, full ROM Hand L/R Front: 1 - laceration (1cm laceration without ertythema, edema. Tender to palpation, no active bleeding or crepitus.) Back exam: Present: normal inspection Neurological exam: Present: alert, oriented X3, CN II-XII intact Psychiatric exam: Present: normal affect, normal mood Skin exam: Present: warm, dry, intact, normal color. Absent: rash Course Vital Signs 09/26/22 09/26/22 14:59 18:12 Temperature 98.1 F Pulse Rate 77 77 Respiratory 18 18 Rate Blood Pressure 115/72 134/81 O2 Sat by Pulse 99 96 Oximetry Medical Decision Making - Medical Decision Making 37 year-old -Serbian female presents to the emergency department for a laceration. Patient was seen and evaluated physical exam reveals a small, 1cm superficial lacteration to lateral aspect of R 5th digit. Patient had imaging performed while in the emergency department. I interpreted the following: R hand XR NEGATIVE FOR ANY FOREIGN BODY OR TISSUE DAMAGE.. I discussed the results in detail with the patient. Patient was given Tylenol with symptomatic relief in the emergency department patient verbalized understanding and ques tions were addressed. Return precautions were discussed Patient is agreeable with plan for discharge discharged in stable condition. I discussed with Dr. Garza who agrees with plan for discharge. Disposition Clinical Impression: Laceration Disposition: HOME SELF-CARE Condition: Stable Instructions (If sedation given, give patient instructions): Laceration (ED) Additional Instructions: Is return to the nearest ER if worsening pain, worsening bleeding, fevers. Is patient prescribed a controlled substance at d/c from ED?: No Referrals: None,Stated [Primary Care Provider] - 1-2 days Time of Disposition: 17:55
--- NOTE | 2022-09-26 17:36 | XR ---
EXAMINATION TYPE: XR hand limited RT DATE OF EXAM: 09/26/2022 COMPARISON: None HISTORY: Hand laceration TECHNIQUE: Two-view right hand FINDINGS: No acute fractures are evident. Joint spaces are preserved. No suspicious soft tissue abnor malities are evident. No radiopaque foreign bodies are evident. Follow-up can be performed 7-10 days from acute trauma for continued pain. IMPRESSION: 1. No acute osseous abnormality post hand laceration
[2022-09-26 18:13] VITALS: BP 134/81
== END 2022-09-26 18:15 | disposition home or self-care (01) ==
LOC: EC 14:31
DX: S61.411A Laceration without foreign body of right hand, initial encounter (principal); W25.XXXA Contact with sharp glass, initial encounter
CPT/HCPCS: 12001; 99283

== ENCOUNTER 2022-12-16 01:30 | Emergency (ER) | payer OTHER ==
[2022-12-16 01:39] VITALS: RESP 16; TEMP 98.2
[2022-12-16] MEDS ORDERED: ACETAMINOPHEN TAB 500 MG TAB PO STA (02:02)
[2022-12-16] MEDS ORDERED: SODIUM CHLORIDE 0.9% 1,000 ML IV ONE (02:02)
[2022-12-16] MEDS ORDERED: ONDANSETRON 4 MG/2 ML VIAL IVP STA (02:02)
--- NOTE | 2022-12-16 02:06 | ED ---
General Adult HPI - General Chief complaint: Urogenital Stated complaint: Abdominal Pain, 10 weeks preg. Time Seen by Provider: 12/16/22 01:58 Source: patient Mode of arrival: ambulatory Limitations: no limitations - History of Present Illness Initial comments: Patient is a 37-year-old female currently 10 weeks presenting with chief complaint of pelvic pain. Pain started today and feels a cramping sensation. She reports increasing clear discharge. No vaginal bleeding. She admits to some nausea with vomiting. No fevers or chills. No chest pain or difficulty breathing. No upper abdominal pain. No diarrhea. No vaginal itching or odor. - Related Data Home Medications Medication Instructions Recorded Confirmed Ferrous Sulfate [Feosol] 325 mg PO DAILY 09/27/16 04/14/20 Pnv,Calcium 72/Iron/Folic Acid 1 tab PO DAILY 09/27/16 04/14/20 [ Plus Tablet] Previous Rx's Medication Instructions Recorded Ibuprofen [Motrin] 600 mg PO Q6HR PRN #30 tab 04/15/20 Allergies Allergy/AdvReac Type Severity Reaction Status Date / Time No Known Allergies Allergy Verified 12/16/22 01:39 Review of Systems ROS Statement: Those systems with pertinent positive or pertinent negative responses have been documented in the HPI. ROS Other: All systems not noted in ROS Statement are negative. Past Medical History Past Medical History: No Reported History Additional Past Medical History / Comment(s): gestational diabetic diet controlled History of Any Multi-Drug Resistant Organisms: None Reported Past Surgical History: Appendectomy, Cholecystectomy, Hernia Repair Past Anesthesia/Blood Transfusion Reactions: No Reported Reaction Past Psychological History: No Psychological Hx Reported Smoking Status: Never smoker Past Alcohol Use History: None Reported Past Drug Use History: None Reported - Past Family History Mother Additional Family Medical History / Comment(s): cholycystectomy General Exam Limitations: no limitations General appearance: alert, in no apparent distress Head exam: Present: atraumatic, normocephalic, normal inspection Eye exam: Present: normal appearance Neck exam: Present: normal inspection, full ROM Respiratory exam: Present: normal lung sounds bilaterally. Absent: respiratory distress, wheezes, rales, rhonchi, stridor Cardiovascular Exam: Present: regular rate, normal rhythm, normal heart sounds. Absent: systolic murmur, diastolic murmur, rubs, gallop, clicks Neurological exam: Present: alert, oriented X3, CN II-XII intact Psychiatric exam: Present: normal affect, normal mood Skin exam: Present: warm, dry, intact, normal color. Absent: rash Course Vital Signs 12/16/22 12/16/22 01:33 05:30 Temperature 98.2 F Pulse Rate 94 79 Respiratory 16 16 Rate Blood Pressure 136/89 104/71 O2 Sat by Pulse 99 100 Oximetry Medical Decision Making - Medical Decision Making Was pt. sent in by a medical professional or institution (, PA, PRODUCTION TEAM MEMBER, urgent care, hospital, or retirement...) When possible be specific @ -No Did you speak to anyone other than the patient for history (EMS, parent, family, police, friend...)? What history was obtained from this source @ -No Did you review nursing and triage notes (agree or disagree)? Why? @ -I reviewed and agree with nursing and triage notes Were old charts reviewed (outside hosp., previous admission, EMS record, old EKG, old radiological studies, urgent care reports/EKG's, retirement records)? Report findings @ -No old charts were reviewed Differential Diagnosis (chest pain, altered mental status, abdominal pain women, abdominal pain men, vaginal bleeding, weakness, fever, dyspnea, syncope, headache, dizziness, GI bleed, back pain, seizure, CVA, palpatations, mental health, musculoskeletal)? @ -MDM Differential Abdominal Pain Women: Appendicitis, Cholecystitis, diverticulosis, ischemic bowel, pancreatitis, hepatitis, UTI, gastroenteritis, AAA, incarcerated hernia, bowel obstruction, constipation, inflammatory bowel, hepatitis, peptic ulcer disease, splenic infarction, perforated viscus, vulvitis, ovarian torsion, PID, kidney stone, placenta abruption... This is not meant to be an all-inclusive list EKG interpreted by me (3pts min.). @ -As above X-rays interpreted by me (1pt min.). @ -None done CT interpreted by me (1pt min.). @ -None done U/S interpreted by me (1pt. min.). @ -Ultrasound gestational age is 9 weeks and 3 days. There is satisfactory growth compared to recent exam. Small subchorionic hemorrhage. heart rate 174 What testing was considered but not performed or refused? (CT, X-rays, U/S, labs)? Why? @ -None What meds were considered but not given or refused? Why? @ -None Did you discuss the management of the patient with other professionals (professionals i.e. , PA, PRODUCTION TEAM MEMBER, lab, RT, psych nurse, social and political studies professor, studio artist, teacher, air control/anti air warfare officer, family caseworker)? Give summary @ -No Was smoking cessation discussed for >3mins.? @ -No Was critical care preformed (if so, how long)? @ -No Were there social determinants of health that impacted care today? How? (Homelessness, low income, unemployed, alcoholism, drug addiction, transportation, low edu. Level, literacy, decrease access to med. care, long term, rehab)? @ -No Was there de-escalation of care discussed even if they declined (Discuss DNR or withdrawal of care, Hospice)? DNR status @ -No What co-morbidities impacted this encounter? (DM, HTN, Smoking, COPD, CAD, Cancer, CVA, ARF, Chemo, Hep., AIDS, mental health diagnosis, sleep apnea, morbid obesity)? @ -None Was patient admitted / discharged? Hospital course, mention meds given and route, prescriptions, significant lab abnormalities, going to OR and other pertinent info. @ -Patient is a 37-year-old female currently 10 weeks , , presenting with chief complaint of pelvic pain that started today. She denies any vaginal bleeding. Ultrasound shows intrauterine with good progression since recent exam. There is a small subchorionic hemorrhage. Lab work is essentially unremarkable. HCG is pending, patient is signed out to my attending Dr. Schwab for further disposition, discharge instructions are prepped in the likely event that the patient is discharged home this evening. Undiagnosed new problem with uncertain prognosis? @ -No Drug Therapy requiring intensive monitoring for toxicity (Heparin, Nitro, Insulin, Cardizem)? @ -No Were any procedures done? @ -No Diagnosis/symptom? @ -Threatened Acute, or Chronic, or Acute on Chronic? @ -Acute Uncomplicated (without systemic symptoms) or Complicated (systemic symptoms)? @ -Uncomplicated Side effects of treatment? @ -No Exacerbation, Progression, or Severe Exacerbation? @ -No Poses a threat to life or bodily function? How? (Chest pain, [place], [place], pneumonia, PE, COPD, DKA, ARF, appy, cholecystitis, CVA, Diverticulitis, Homicidal, Suicidal, threat to staff... and all critical care pts) @ - - Lab Data Result diagrams: 12/16/22 03:00 12/16/22 03:00 Lab Results 12/16/22 12/16/22 12/16/22 Range/Units 03:00 03:00 03:00 WBC 10.6 (3.8-10.6) k/uL RBC 4.54 (3.80-5.40) m/uL Hgb 11.0 L (11.4-16.0) gm/dL Hct 34.3 (34.0-46.0) % MCV 75.7 L (80.0-100.0) fL MCH 24.2 L (25.0-35.0) pg MCHC 31.9 (31.0-37.0) g/dL RDW 16.1 H (11.5-15.5) % Plt Count 345 (150-450) k/uL MPV 7.4 Neutrophils % 71 % Lymphocytes % 21 % Monocytes % 4 % Eosinophils % 2 % Basophils % 0 % Neutrophils # 7.5 (1.3-7.7) k/uL Lymphocytes # 2.3 (1.0-4.8) k/uL Monocytes # 0.4 (0-1.0) k/uL Eosinophils # 0.2 (0-0.7) k/uL Basophils # 0.0 (0-0.2) k/uL Anisocytosis Slight Microcytosis Slight PT 10.1 (9.0-12.0) sec INR 0.9 (<1.2) APTT 19.4 L (22.0-30.0) sec Sodium 136 L (137-145) mmol/L Potassium 4.2 (3.5-5.1) mmol/L Chloride 103 (98-107) mmol/L Carbon Dioxide 24 (22-30) mmol/L Anion Gap 9 mmol/L BUN 8 (7-17) mg/dL Creatinine 0.50 L (0.52-1.04) mg/dL Est GFR (CKD-EPI)AfAm >90 (>60 ml/min/1.73 sqM) Est GFR (CKD-EPI)NonAf >90 (>60 ml/min/1.73 sqM) Glucose 102 H (74-99) mg/dL Calcium 9.3 (8.4-10.2) mg/dL Total Bilirubin 0.5 (0.2-1.3) mg/dL AST 19 (14-36) U/L ALT 16 (4-34) U/L Alkaline Phosphatase 53 (38-126) U/L Total Protein 7.6 (6.3-8.2) g/dL Albumin 4.2 (3.5-5.0) g/dL HCG, Quant 183803.0 mIU/mL Urine Color Urine Appearance (Clear) Urine pH (5.0-8.0) Ur Specific [place] (1.001-1.035) Urine Protein (Negative) Urine Glucose (UA) (Negative) Urine Ketones (Negative) Urine Blood (Negative) Urine Nitrite (Negative) Urine Bilirubin (Negative) Urine Urobilinogen (<2.0) mg/dL Ur Leukocyte Esterase (Negative) 12/16/22 Range/Units 04:50 WBC (3.8-10.6) k/uL RBC (3.80-5.40) m/uL Hgb (11.4-16.0) gm/dL Hct (34.0-46.0) % MCV (80.0-100.0) fL MCH (25.0-35.0) pg MCHC (31.0-37.0) g/dL RDW (11.5-15.5) % Plt Count (150-450) k/uL MPV Neutrophils % % Lymphocytes % % Monocytes % % Eosinophils % % Basophils % % Neutrophils # (1.3-7.7) k/uL Lymphocytes # (1.0-4.8) k/uL Monocytes # (0-1.0) k/uL Eosinophils # (0-0.7) k/uL Basophils # (0-0.2) k/uL Anisocytosis Microcytosis PT (9.0-12.0) sec INR (<1.2) APTT (22.0-30.0) sec Sodium (137-145) mmol/L Potassium (3.5-5.1) mmol/L Chloride (98-107) mmol/L Carbon Dioxide (22-30) mmol/L Anion Gap mmol/L BUN (7-17) mg/dL Creatinine (0.52-1.04) mg/dL Est GFR (CKD-EPI)AfAm (>60 ml/min/1.73 sqM) Est GFR (CKD-EPI)NonAf (>60 ml/min/1.73 sqM) Glucose (74-99) mg/dL Calcium (8.4-10.2) mg/dL Total Bilirubin (0.2-1.3) mg/dL AST (14-36) U/L ALT (4-34) U/L Alkaline Phosphatase (38-126) U/L Total Protein (6.3-8.2) g/dL Albumin (3.5-5.0) g/dL HCG, Quant mIU/mL Urine Color Yellow Urine Appearance Clear (Clear) Urine pH 5.5 (5.0-8.0) Ur Specific [place] 1.033 (1.001-1.035) Urine Protein Trace H (Negative) Urine Glucose (UA) Negative (Negative) Urine Ketones Negative (Negative) Urine Blood Negative (Negative) Urine Nitrite Negative (Negative) Urine Bilirubin Negative (Negative) Urine Urobilinogen <2.0 (<2.0) mg/dL Ur Leukocyte Esterase Negative (Negative) Disposition Clinical Impression: Subchorionic hemorrhage, Threatened Disposition: HOME SELF-CARE Condition: Good Instructions (If sedation given, give patient instructions): Threatened Miscarriage (ED), Subchorionic Hemorrhage (ED) Additional Instructions: Follow-up with CLINICAL LABORATORY MEDICAL DIRECTOR. Report back to ER with any new or worsening symptoms. Take Tylenol as needed for pain control. Is patient prescribed a controlled substance at d/c from ED?: No Referrals: None,Stated [Primary Care Provider] - 1-2 days Nicholas Rodriguez MD [STAFF PHYSICIAN] - 1-2 days
[2022-12-16 03:12] LABS: Anisocytosis Slight; Basophils % (A) 0 %; Eosinophils # (A) 0.2 k/uL (0-0.7); Eosinophils % (A) 2 %; HCT 34.3 % (34.0-46.0); Lymphocytes # (A) 2.3 k/uL (1.0-4.8); Lymphocytes % (A) 21 %; MCH 24.2 pg (25.0-35.0); MCHC 31.9 g/dL (31.0-37.0); MCV 75.7 fL (80.0-100.0); Mean Platelet Volume 7.4; Microcytosis Slight; Monocytes # (A) 0.4 k/uL (0-1.0); Monocytes % (A) 4 %; Neutrophils # (A) 7.5 k/uL (1.3-7.7); Neutrophils % (A) 71 %; Platelet Count 345 k/uL (150-450); RBC 4.54 m/uL (3.80-5.40); RDW 16.1 % (11.5-15.5); WBC 10.6 k/uL (3.8-10.6)
[2022-12-16 03:21] LABS: ALT 16 U/L (4-34); AST 19 U/L (14-36); African American GFR (CKD) >90 (>60 ml/min/1.73 sqM); Albumin 4.2 g/dL (3.5-5.0); Alkaline Phosphatase 53 U/L (38-126); Anion Gap 9 mmol/L; Blood Urea Nitrogen 8 mg/dL (7-17); Calcium 9.3 mg/dL (8.4-10.2); Carbon Dioxide 24 mmol/L (22-30); Chloride 103 mmol/L (98-107); Glucose 102 mg/dL (74-99); Non-African American GFR(CKD) >90 (>60 ml/min/1.73 sqM); Potassium 4.2 mmol/L (3.5-5.1); Sodium 136 mmol/L (137-145); Total Bilirubin 0.5 mg/dL (0.2-1.3); Total Protein 7.6 g/dL (6.3-8.2)
[2022-12-16 03:28] LABS: INR 0.9 (<1.2); Prothrombin Time 10.1 sec (9.0-12.0)
[2022-12-16 03:29] LABS: Partial Thromboplastin Time 19.4 sec (22.0-30.0)
--- NOTE | 2022-12-16 03:50 | US ---
EXAMINATION TYPE: Transabdominal DATE OF EXAM: 12/16/2022 3:22 AM COMPARISON: 12/02/2022 CLINICAL HISTORY: pain. Generalized pelvic pain. EXAM PERFORMED: Transabdominal (TA) EXAM MEASUREMENTS: GESTATIONAL AGE / DATING Dates by LMP: (10 weeks/2 days) EDC: 07/12/2023 Dates by First Scan: ( 9 weeks/1 days) EDC: 07/20/2023 Dates by Current Scan for: (9 weeks/3 days) EDC: 07/18/2023 MATERNAL ANATOMY Uterus: 12.9 x 8.4 x 7.5 cm Right Ovary: 5.2 x 2.6 x 2.6 cm Left Ovary: 3.6 x 2.7 x 2.6 cm Post CDS / Adnexa: no free fluid Presence of free fluid: no Presence of corpus luteal cyst: no Presence of subchorionic bleed: 1.2 x 2.0 x 1.0 cm GESTATION / SURVEY CRL: 2.6 cm (9 weeks/3 days) MSD: seen, not measured Yolk Sac (normal less than 6mm): 3.4 mm Heart Rate: 174 bpm Rhythm: Normal IUP: Viable IUP Date of LMP: 10/05/2022, Beta HcG (if available): Not available at this time Right ovarian complex cyst= 3.3 x 2.7 x 3.3 cm IMPRESSION: The ultrasound gestational age is 9 weeks and 3 days. There is satisfactory growth compared to recent exam. Small subchorionic hemorrhage.
[2022-12-16 05:06] LABS: Appearance,Urine Clear (Clear); Bilirubin,Urine Negative (Negative); Blood,Urine Negative (Negative); Color,Urine Yellow; Glucose,Urine (UA) Negative (Negative); Ketones,Urine Negative (Negative); Leukocyte Esterase,Urine Negative (Negative); Nitrite,Urine Negative (Negative); PH, Urine 5.5 (5.0-8.0); Protein,Urine Trace (Negative); Specific Gravity,Urine 1.033 (1.001-1.035); Urobilinogen,Urine <2.0 mg/dL (<2.0)
[2022-12-16 05:37] VITALS: BP 104/71; PULSE 79
== END 2022-12-16 05:30 | disposition home or self-care (01) ==
LOC: EC 01:30
DX: O20.0 Threatened abortion (principal); O20.8 Other hemorrhage in early pregnancy; Z3A.09 9 weeks gestation of pregnancy
CPT/HCPCS: 36415; 80053; 85025; 85610; 85730; 81003; 84702; 76801; 99284; 96374; J2405

== ENCOUNTER 2023-04-21 01:59 | Outpatient (CLI) | payer OTHER ==
[2023-04-21 02:58] VITALS: BP 141/60; PULSE 103; RESP 16; TEMP 96.8
--- NOTE | 2023-04-21 09:00 | P.MSEPDOC ---
Presenting Problems - Arrival Data Date of Arrival on Unit: 04/21/23 Time of Arrival on Unit: 01:59 Mode of Transport: Ambulatory - Complaint OB-Reason for Admission/Chief Complaint: Rule Out SROM Comment: pt. c/o leaking small spurts of clear fluid the past few days Medical History - Information : 7 Para: 5 Term: 4 : 1 Abortions: Spontaneous or Elective: 1 Number of Living Children: 5 - Gestational Age Gestational Age by VALERIO (wks/days): 28 Weeks and 2 Days Review of Systems - Review of Systems Constitutional: No problems Breast: No problems ENT: No problems Cardiovascular: No problems Respiratory: No problems Gastrointestinal: No problems Genitourinary: No problems Musculoskeletal: No problems Neurological: No problems Skin: No problems Vital Signs - Temperature Temperature: 96.8 F Temperature Source: Temporal Artery Scan - Pulse Pulse Oximetery Pulse Rate: 103 Pulse Assessment Method: Automatic Cuff - Respirations Respiratory Rate: 16 Oxygen Delivery Method: Room Air O2 Sat by Pulse Oximetry: 99 - Blood Pressure Right Arm Blood Pressure: 141/60 Blood Pressure Mean: 87 Blood Pressure Source: Automatic Cuff Medical Screen Scoring - Cervical Exam Dilation (cm): 0 Membranes: Intact - Assessment - Baby A Baseline FHR: 145 Heart Rate - NICHD Category: Category I (Normal) NST: Reactive Physician Notification - Physician Notified Physician Notified Date: 04/21/23 Physician Notified Time: 02:29 Physician: Aliya Silverman New Order Received: Yes (check cervix) - Notification Comment Comment: orders to collect FFN before cervix check, if pt. is closed D/c pt. home Maternal Triage Index - Maternal Triage Index Presenting for scheduled procedure w/no complaint: No - Stat/Priority 1 Stat Priority 1: No - Urgent/Priority 2 Urgent Priority 2: Yes Provider Notified: Aliya Silverman Provider Notified Time: 02:29 Criteria Met for Priority 2: amnisure negative Disposition - Disposition OB Disposition: Discharge to home Discharge Date: 04/21/23 Discharge Time: 02:41 I agree with the RN Medical Screening Exam: Yes Case reviewed; plan agreed upon as documented in EMR&OBIX.: Yes Diagnosis: FALSE LABOR BEFORE 37 COMPLETED WEEKS OF GEST, THIRD TRI
== END 2023-04-21 02:41 | disposition home or self-care (01) ==
LOC: FBPOP 01:59
PROVIDERS: ATTEND Obstetrics & Gynecology
DX: O47.03 False labor before 37 completed weeks of gestation, third trimester (principal); Z3A.28 28 weeks gestation of pregnancy
CPT/HCPCS: 59025; 84112; G0463; 99213

== ENCOUNTER 2024-08-15 10:32 | Emergency (ER) | payer OTHER ==
[2024-08-15 10:41] VITALS: TEMP 98
--- NOTE | 2024-08-15 11:13 | ED ---
Dizziness HPI - General Chief Complaint: Dizziness Stated Complaint: dizzy Time Seen by Provider: 08/15/24 10:47 Source: patient, RN notes reviewed Mode of arrival: ambulatory Limitations: no limitations - History of Present Illness Initial Comments: This is a 39-year-old female presenting with intermittent dizziness x 2 weeks. Patient endorses sensation of room spinning even without position change or head movement. Patient endorses associated "racing heart". Patient denies hearing or vision changes, history of similar symptoms or [id number] medication use. Patient denies fever, chills, fatigue, chest pain, dyspnea, abdominal pain, N/V/D. MD Complaint: dizziness Onset/Timin -: week(s) Timing: gradual onset Description: "room spinning" History of Same: No History of Trauma: No Associated Symptoms: other (Sensation of "racing heart") - Related Data Home Medications Medication Instructions Recorded Confirmed Pnv,Calcium 72/Iron/Folic Acid 1 tab PO DAILY 09/27/16 07/01/23 [ Plus Tablet] Previous Rx's Medication Instructions Recorded Ibuprofen [Motrin] 600 mg PO Q6HR PRN #30 tab 07/02/23 Meclizine [Antivert] 25 mg PO TID PRN #30 tab 08/15/24 Allergies Allergy/AdvReac Type Severity Reaction Status Date / Time No Known Allergies Allergy Verified 08/15/24 10:41 Review of Systems ROS Statement: Those systems with pertinent positive or pertinent negative responses have been documented in the HPI. ROS Other: All systems not noted in ROS Statement are negative. Past Medical History Past Medical History: No Reported History Additional Past Medical History / Comment(s): Gestational diabetic diet controlled; 6 previous vaginal deliveries; chronic anemia History of Any Multi-Drug Resistant Organisms: None Reported Past Surgical History: Appendectomy, Cholecystectomy, Hernia Repair Past Anesthesia/Blood Transfusion Reactions: No Reported Reaction Past Psychological History: No Psychological Hx Reported Smoking Status: Never smoker Past Alcohol Use History: None Reported Past Drug Use History: None Reported - Past Family History Mother Additional Family Medical History / Comment(s): cholycystectomy General Exam Limitations: no limitations General appearance: alert, in no apparent distress Head exam: Present: atraumatic, normocephalic, normal inspection Eye exam: Present: normal appearance, PERRL, EOMI, other (Negative Manisha-Hallpike bilaterally. Patient notes increased dizziness with head impulse test without saccade. Test of skew revealed no skew). Absent: scleral icterus, conjunctival injection, nystagmus, periorbital swelling Pupils: Present: normal accommodation ENT exam: Present: normal exam, mucous membranes moist, TM's normal bilaterally Neck exam: Present: normal inspection. Absent: tenderness, meningismus, lymphadenopathy Respiratory exam: Present: normal lung sounds bilaterally. Absent: respiratory distress, wheezes, rales, rhonchi, stridor Cardiovascular Exam: Present: regular rate, normal rhythm, normal heart sounds. Absent: systolic murmur, diastolic murmur, rubs, gallop, clicks GI/Abdominal exam: Present: soft, normal bowel sounds. Absent: distended, tenderness, guarding, rebound, rigid Extremities exam: Present: normal inspection, full ROM, normal capillary refill. Absent: tenderness, pedal edema, joint swelling, calf tenderness Back exam: Present: normal inspection Neurological exam: Present: alert, oriented X3, CN II-XII intact Psychiatric exam: Present: normal affect, normal mood Skin exam: Present: warm, dry, intact, normal color. Absent: rash Course Vital Signs 08/15/24 08/15/24 10:39 12:56 Temperature 98 F Pulse Rate 86 74 Respiratory 18 16 Rate Blood Pressure 110/79 122/80 O2 Sat by Pulse 99 100 Oximetry Medical Decision Making - Medical Decision Making Was pt. sent in by a medical professional or institution (CAROL Chaves, SIDE SHOW ENTERTAINER, urgent care, hospital, or snf...) When possible be specific @ -No Did you speak to anyone other than the patient for history (EMS, parent, family, police, friend...)? What history was obtained from this source @ -No Did you review nursing and triage notes (agree or disagree)? Why? @ -I reviewed and agree with nursing and triage notes Were old charts reviewed (outside hosp., previous admission, EMS record, old EKG, old radiological studies, urgent care reports/EKG's, snf records)? Report findings @ -No old charts were reviewed Differential Diagnosis (chest pain, altered mental status, abdominal pain women, abdominal pain men, vaginal bleeding, weakness, fever, dyspnea, syncope, headache, dizziness, GI bleed, back pain, seizure, CVA, palpatations, mental health, musculoskeletal)? @ -Differential Dizziness: Benign paroxysmal positional Vertigo, Meniere's disease, otitis media, acoustic neuroma, vertebrobasilar insufficiency, cerebellar stroke, encephalitis, hypovolemic, arrhythmia, coronary artery syndrome, anemia, this is not meant to be an all-inclusive list EKG interpreted by me (3pts min.). @ -Sinus rhythm without ST changes or T wave inversion. Ventricular rate 79 bpm, NEO 140 ms, QRS duration 99 ms, QTc 393 ms. X-rays interpreted by me (1pt min.). @ -Chest x-ray revealed no cardiomegaly, focal infiltrates, pulmonary edema or pneumothorax. CT interpreted by me (1pt min.). @ -None done U/S interpreted by me (1pt. min.). @ -None done What testing was considered but not performed or refused? (CT, X-rays, U/S, labs)? Why? @ -None What meds were considered but not given or refused? Why? @ -None Did you discuss the management of the patient with other professionals (professionals i.e. , PA, SIDE SHOW ENTERTAINER, lab, RT, psych nurse, social security benefits interviewer, bi developer, teacher, systems support officer, case checker)? Give summary @ -No Was smoking cessation discussed for >3mins.? @ -No Was critical care preformed (if so, how long)? @ -No Were there social determinants of health that impacted care today? How? (Homeles sness, low income, unemployed, alcoholism, drug addiction, transportation, low edu. Level, literacy, decrease access to med. care, long-term, rehab)? @ -No Was there de-escalation of care discussed even if they declined (Discuss DNR or withdrawal of care, Hospice)? DNR status @ -No What co-morbidities impacted this encounter? (DM, HTN, Smoking, COPD, CAD, Cancer, CVA, ARF, Chemo, Hep., AIDS, mental health diagnosis, sleep apnea, morbid obesity)? @ -None Was patient admitted / discharged? Hospital course, mention meds given and route, prescriptions, significant lab abnormalities, going to OR and other pertinent info. @ -Discharge. No significant abnormal findings with physical exam or lab work. Twelve-lead and chest x-ray were also unremarkable. Patient notes relief of vertigo with meclizine p.o. Patient able to ambulate without dizziness or vertigo and agrees to discharge. Meclizine p.o. sent to pharmacy. Advised to return to ER if vertigo/dizziness should return or worsen despite meclizine use. Undiagnosed new problem with uncertain prognosis? @ -No Drug Therapy requiring intensive monitoring for toxicity (Heparin, Nitro, Insulin, Cardizem)? @ -No Were any procedures done? @ -No Diagnosis/symptom? @ -Peripheral vertigo Acute, or Chronic, or Acute on Chronic? @ -Acute Uncomplicated (without systemic symptoms) or Complicated (systemic symptoms)? @ -Complicated Side effects of treatment? @ -No Exacerbation, Progression, or Severe Exacerbation? @ -No Poses a threat to life or bodily function? How? (Chest pain, [place], [place], pneumonia, PE, COPD, DKA, ARF, appy, cholecystitis, CVA, Diverticulitis, Homicidal, Suicidal, threat to staff... and all critical care pts) @ -No - Lab Data Result diagrams: 08/15/24 11:50 08/15/24 11:50 Lab Results 08/15/24 08/15/24 08/15/24 Range/Units 11:30 11:50 11:50 WBC 9.6 (3.8-10.6) k/uL RBC 4.30 (3.80-5.40) m/uL Hgb 10.8 L (11.4-16.0) gm/dL Hct 33.9 L (34.0-46.0) % MCV 78.7 L (80.0-100.0) fL MCH 25.0 (25.0-35.0) pg MCHC 31.8 (31.0-37.0) g/dL RDW 14.9 (11.5-15.5) % Plt Count 293 (150-450) k/uL MPV 7.3 Neutrophils % 64 % Lymphocytes % 25 % Monocytes % 5 % Eosinophils % 3 % Basophils % 0 % Neutrophils # 6.2 (1.3-7.7) k/uL Lymphocytes # 2.4 (1.0-4.8) k/uL Monocytes # 0.5 (0-1.0) k/uL Eosinophils # 0.3 (0-0.7) k/uL Basophils # 0.0 (0-0.2) k/uL Hypochromasia Slight PT (10.0-12.5) sec INR (<1.2) APTT (22.0-30.0) sec Sodium 140 (137-145) mmol/L Potassium 4.1 (3.5-5.1) mmol/L Chloride 105 (98-107) mmol/L Carbon Dioxide 27 (22-30) mmol/L Anion Gap 8 mmol/L BUN 7 (7-17) mg/dL Creatinine 0.64 (0.52-1.04) mg/dL Est GFR (CKD-EPI)AfAm >90 (>60 ml/min/1.73 sqM) Est GFR (CKD-EPI)NonAf >90 (>60 ml/min/1.73 sqM) Glucose 101 H (74-99) mg/dL Calcium 8.9 (8.4-10.2) mg/dL Total Bilirubin 0.2 (0.2-1.3) mg/dL AST 19 (14-36) U/L ALT 13 (4-34) U/L Alkaline Phosphatase 65 (38-126) U/L Troponin I (0.000-0.034) ng/mL Total Protein 7.3 (6.3-8.2) g/dL Albumin 4.2 (3.5-5.0) g/dL Urine HCG, Qual Not Detected (Not Detectd) 08/15/24 08/15/24 Range/Units 11:50 11:50 WBC (3.8-10.6) k/uL RBC (3.80-5.40) m/uL Hgb (11.4-16.0) gm/dL Hct (34.0-46.0) % MCV (80.0-100.0) fL MCH (25.0-35.0) pg MCHC (31.0-37.0) g/dL RDW (11.5-15.5) % Plt Count (150-450) k/uL MPV Neutrophils % % Lymphocytes % % Monocytes % % Eosinophils % % Basophils % % Neutrophils # (1.3-7.7) k/uL Lymphocytes # (1.0-4.8) k/uL Monocytes # (0-1.0) k/uL Eosinophils # (0-0.7) k/uL Basophils # (0-0.2) k/uL Hypochromasia PT 10.0 (10.0-12.5) sec INR 0.9 (<1.2) APTT 22.2 (22.0-30.0) sec Sodium (137-145) mmol/L Potassium (3.5-5.1) mmol/L Chloride (98-107) mmol/L Carbon Dioxide (22-30) mmol/L Anion Gap mmol/L BUN (7-17) mg/dL Creatinine (0.52-1.04) mg/dL Est GFR (CKD-EPI)AfAm (>60 ml/min/1.73 sqM) Est GFR (CKD-EPI)NonAf (>60 ml/min/1.73 sqM) Glucose (74-99) mg/dL Calcium (8.4-10.2) mg/dL Total Bilirubin (0.2-1.3) mg/dL AST (14-36) U/L ALT (4-34) U/L Alkaline Phosphatase (38-126) U/L Troponin I <0.012 (0.000-0.034) ng/mL Total Protein (6.3-8.2) g/dL Albumin (3.5-5.0) g/dL Urine HCG, Qual (Not Detectd) Disposition Clinical Impression: Peripheral vertigo Disposition: HOME SELF-CARE Condition: Good Instructions (If sedation given, give patient instructions): Dizziness (ED) Prescriptions: Meclizine [Antivert] 25 mg PO TID PRN #30 tab PRN Reason: Vertigo Is patient prescribed a controlled substance at d/c from ED?: No Referrals: None,Stated [Primary Care Provider] - 1-2 days Time of Disposition: 12:44
[2024-08-15] MEDS: MECLIZINE 12.5 MG TAB PO STA (11:15)
[2024-08-15 12:04] LABS: Basophils % (A) 0 %; Eosinophils # (A) 0.3 k/uL (0-0.7); Eosinophils % (A) 3 %; HCT 33.9 % (34.0-46.0); HGB 10.8 gm/dL (11.4-16.0); Hypochromasia Slight; Lymphocytes # (A) 2.4 k/uL (1.0-4.8); Lymphocytes % (A) 25 %; MCHC 31.8 g/dL (31.0-37.0); MCV 78.7 fL (80.0-100.0); Mean Platelet Volume 7.3; Monocytes # (A) 0.5 k/uL (0-1.0); Monocytes % (A) 5 %; Neutrophils # (A) 6.2 k/uL (1.3-7.7); Neutrophils % (A) 64 %; Platelet Count 293 k/uL (150-450); RDW 14.9 % (11.5-15.5); WBC 9.6 k/uL (3.8-10.6)
[2024-08-15 12:16] LABS: ALT 13 U/L (4-34); AST 19 U/L (14-36); African American GFR (CKD) >90 (>60 ml/min/1.73 sqM); Albumin 4.2 g/dL (3.5-5.0); Alkaline Phosphatase 65 U/L (38-126); Anion Gap 8 mmol/L; Blood Urea Nitrogen 7 mg/dL (7-17); Calcium 8.9 mg/dL (8.4-10.2); Carbon Dioxide 27 mmol/L (22-30); Chloride 105 mmol/L (98-107); Glucose 101 mg/dL (74-99); Non-African American GFR(CKD) >90 (>60 ml/min/1.73 sqM); Potassium 4.1 mmol/L (3.5-5.1); Sodium 140 mmol/L (137-145); Total Bilirubin 0.2 mg/dL (0.2-1.3); Total Protein 7.3 g/dL (6.3-8.2)
[2024-08-15 12:19] LABS: INR 0.9 (<1.2); Partial Thromboplastin Time 22.2 sec (22.0-30.0)
--- NOTE | 2024-08-15 12:19 | XR ---
EXAMINATION TYPE: XR chest 2V DATE OF EXAM: 08/15/2024 COMPARISON: NONE HISTORY: Tachycardia and dizziness TECHNIQUE: Frontal and lateral views of the chest are obtained. FINDINGS: There is no focal air space opacity, pleural effusion, or pneumothorax seen. The cardiac silhouette size is within normal limits. The osseous structures are intact. IMPRESSION: No acute cardiopulmonary process. [facility], Workstation: [facility], 08/15/2024 12:16 PM
[2024-08-15 12:57] VITALS: BP 122/80; PULSE 74; RESP 16
== END 2024-08-15 12:57 | disposition home or self-care (01) ==
LOC: EC 10:32
DX: H81.399 Other peripheral vertigo, unspecified ear (principal)
CPT/HCPCS: 36415; 71046; 80053; 81025; 84484; 85025; 85610; 85730; 93005

== ENCOUNTER 2025-03-03 16:05 | Emergency (ER) | payer OTHER ==
--- NOTE | 2025-03-03 17:16 | ED ---
General Adult HPI - General Chief complaint: Abdominal Pain Stated complaint: Low Abd Pain/NV Time Seen by Provider: 03/03/25 16:20 Source: patient, RN notes reviewed Mode of arrival: ambulatory Limitations: no limitations - History of Present Illness Initial comments: 40-year-old female, [id number], presenting to the emergency department for chief complaint of nausea, vomiting, lower abdominal pain. Patient states that she has been having nausea and vomiting over the past week and started to experience lower abdominal pain over the past 3 days. Patient states that she had a positive at home test yesterday with her last menstrual cycle sometime in December. She denies vaginal bleeding, urinary complaints, bowel habit changes. - Related Data Home Medications Medication Instructions Recorded Confirmed Pnv,Calcium 72/Iron/Folic Acid 1 tab PO DAILY 09/27/16 07/01/23 [ Plus Tablet] Previous Rx's Medication Instructions Recorded Ibuprofen [Motrin] 600 mg PO Q6HR PRN #30 tab 07/02/23 Meclizine [Antivert] 25 mg PO TID PRN #30 tab 08/15/24 Allergies Allergy/AdvReac Type Severity Reaction Status Date / Time No Known Allergies Allergy Verified 08/15/24 10:41 Review of Systems ROS Statement: Those systems with pertinent positive or pertinent negative responses have been documented in the HPI. ROS Other: All systems not noted in ROS Statement are negative. Past Medical History Past Medical History: No Reported History Additional Past Medical History / Comment(s): Gestational diabetic diet controlled; 6 previous vaginal deliveries; chronic anemia History of Any Multi-Drug Resistant Organisms: None Reported Past Surgical History: Appendectomy, Cholecystectomy, Hernia Repair Past Anesthesia/Blood Transfusion Reactions: No Reported Reaction Past Psychological History: No Psychological Hx Reported Smoking Status: Never smoker Past Alcohol Use History: None Reported Past Drug Use History: None Reported - Past Family History Mother Additional Family Medical History / Comment(s): cholycystectomy General Exam Limitations: no limitations General appearance: alert, in no apparent distress ENT exam: Present: normal exam, mucous membranes moist Neck exam: Present: normal inspection. Absent: tenderness, meningismus, lymphadenopathy Respiratory exam: Present: normal lung sounds bilaterally. Absent: respiratory distress, wheezes, rales, rhonchi, stridor Cardiovascular Exam: Present: regular rate, normal rhythm, normal heart sounds. Absent: systolic murmur, diastolic murmur, rubs, gallop, clicks GI/Abdominal exam: Present: soft, tenderness (suprapubic), normal bowel sounds. Absent: distended, guarding, rebound, rigid Extremities exam: Present: normal inspection, full ROM, normal capillary refill. Absent: tenderness, pedal edema, joint swelling, calf tenderness Back exam: Present: normal inspection. Absent: CVA tenderness (R), CVA tenderness (L) Skin exam: Present: warm, dry, intact, normal color. Absent: rash Course Vital Signs 03/03/25 16:13 Temperature 98.8 F Pulse Rate 90 Respiratory 20 Rate Blood Pressure 109/75 O2 Sat by Pulse 98 Oximetry Medical Decision Making - Medical Decision Making Was pt. sent in by a medical professional or institution (Dr. PA, EDITORIAL ASSISTANT, urgent care, hospital, or alf...) When possible be specific @ -No Did you speak to anyone other than the patient for history (EMS, parent, family, police, friend...)? What history was obtained from this source @ -No Did you review nursing and triage notes (agree or disagree)? Why? @ -I reviewed and agree with nursing and triage notes Were old charts reviewed (outside hosp., previous admission, EMS record, old EKG, old radiological studies, urgent care reports/EKG's, alf records)? Report findings @ -No old charts were reviewed Differential Diagnosis (chest pain, altered mental status, abdominal pain women, abdominal pain men, vaginal bleeding, weakness, fever, dyspnea, syncope, headache, dizziness, GI bleed, back pain, seizure, CVA, palpatations, mental health, musculoskeletal)? @ -Differential Abdominal Pain Women: Appendicitis, Cholecystitis, diverticulosis, ischemic bowel, pancreatitis, hepatitis, UTI, gastroenteritis, AAA, incarcerated hernia, bowel obstruction, constipation, inflammatory bowel, hepatitis, peptic ulcer disease, splenic infarction, perforated viscus, vulvitis, ovarian torsion, PID, kidney stone, placenta abruption, this is not meant to be an all-inclusive list EKG interpreted by me (3pts min.). @ -None X-rays interpreted by me (1pt min.). @ -None done CT interpreted by me (1pt min.). @ -None done U/S interpreted by me (1pt. min.). @ -Transabdominal ultrasound reveals a single live intrauterine with a calculated gestational age of 10 weeks 2 days with a heart rate of 174, small subchorionic bleed. What testing was considered but not performed or refused? (CT, X-rays, U/S, labs)? Why? @ -None What meds were considered but not given or refused? Why? @ -None Did you discuss the management of the patient with other professionals (professionals i.e. DrWyatt, PA, EDITORIAL ASSISTANT, lab, RT, psych nurse, rn social services, sponsorship coordinator, teacher, credit risk officer, case coordinator)? Give summary @ -No Was smoking cessation discussed for >3mins.? @ -No Was critical care preformed (if so, how long)? @ -No Were there social determinants of health that impacted care today? How? (Homelessness, low income, unemployed, alcoholism, drug addiction, transportation, low edu. Level, literacy, decrease access to med. care, custodial, rehab)? @ -No Was there de-escalation of care discussed even if they declined (Discuss DNR or withdrawal of care, Hospice)? DNR status @ -No What co-morbidities impacted this encounter? (DM, HTN, Smoking, COPD, CAD, Cancer, CVA, ARF, Chemo, Hep., AIDS, mental health diagnosis, sleep apnea, morbid obesity)? @ -None Was patient admitted / discharged? Hospital course, mention meds given and route, prescriptions, significant lab abnormalities, going to OR and other pertinent info. @ -Discharge. 40-year-old female presents emergency room with complaints of lower abdominal pain, nausea and vomiting with a positive home test yesterday. Patient is overall well-appearing. Pain is slightly reproducible to the lower pelvic palpation. She is provided with Tylenol, fluids, Zofran. Ultrasound reveals a intrauterine gestation with a date of 10 weeks 2 days and a heart rate of 174. Urinalysis unremarkable. Patient stable for discharge with follow-up with OB. Case discussed with Dr. Sharma Undiagnosed new problem with uncertain prognosis? @ -No Drug Therapy requiring intensive monitoring for toxicity (Heparin, Nitro, Insulin, Cardizem)? @ -No Were any procedures done? @ -No Diagnosis/symptom? @ -nausea and vomiting in , intruterine Acute, or Chronic, or Acute on Chronic? @ -acute Uncomplicated (without systemic symptoms) or Complicated (systemic symptoms)? @ -uncomplicated Side effects of treatment? @ -No Exacerbation, Progression, or Severe Exacerbation? @ -No Poses a threat to life or bodily function? How? (Chest pain, [place], [place], pneumonia, PE, COPD, DKA, ARF, appy, cholecystitis, CVA, Diverticulitis, Homicidal, Suicidal, threat to staff... and all critical care pts) @ -No - Lab Data Result diagrams: 03/03/25 17:47 03/03/25 17:47 Lab Results 03/03/25 03/03/25 03/03/25 Range/Units 17:47 17:47 18:32 WBC 8.73 (4.50-10.00) 10*3/uL RBC 4.03 L (4.10-5.20) 10*6/uL Hgb 9.7 L (12.0-15.0) g/dL Hct 30.0 L (37.2-46.3) % MCV 74.4 L (80.0-97.0) fL MCH 24.1 L (27.0-32.0) pg MCHC 32.3 (32.0-37.0) g/dL Plt Count 285 (140-440) 10*3/uL MPV 9.3 L (9.5-12.2) fL Immature Gran % (Auto) 0.3 % Neutrophils % 67.2 % Lymphocytes % 23.3 % Monocytes % 6.0 % Eosinophils % 2.9 % Basophils % 0.3 % Immature Gran # 0.03 (0.00-0.04) 10*3/uL Neutrophils # 5.87 (1.80-7.70) 10*3/uL Lymphocytes # 2.03 (0.90-5.00) 10*3/uL Monocytes # 0.52 (0.20-1.00) 10*3/uL Eosinophils # 0.25 (0.04-0.35) 10*3/uL Basophils # 0.03 (0.00-0.10) 10*3/uL Sodium 136 L (137-145) mmol/L Potassium 3.6 (3.5-5.1) mmol/L Chloride 103 (98-107) mmol/L Carbon Dioxide 24 (22-30) mmol/L Anion Gap 9 mmol/L BUN 5 L (7-17) mg/dL Creatinine 0.48 L (0.52-1.04) mg/dL Est GFR (CKD-EPI)AfAm >90 (>60 ml/min/1.73 sqM) Est GFR (CKD-EPI)NonAf >90 (>60 ml/min/1.73 sqM) Glucose 145 H (74-99) mg/dL Calcium 9.2 (8.4-10.2) mg/dL Total Bilirubin 0.4 (0.2-1.3) mg/dL AST 13 L (14-36) U/L ALT 11 (4-34) U/L Alkaline Phosphatase 53 (38-126) U/L Total Protein 6.6 (6.3-8.2) g/dL Albumin 3.6 (3.5-5.0) g/dL Urine Color Light Yellow Urine Appearance Clear (Clear) Urine pH 6.0 (5.0-8.0) Ur Specific Perry 1.025 (1.001-1.035) Urine Protein Negative (Negative) Urine Glucose (UA) Negative (Negative) Urine Ketones Negative (Negative) Urine Blood Trace H (Negative) Urine Nitrite Negative (Negative) Urine Bilirubin Negative (Negative) Urine Urobilinogen 2.0 (<2.0) mg/dL Ur Leukocyte Esterase Negative (Negative) Urine RBC 1 (0-5) /hpf Urine WBC 2 (0-5) /hpf Ur Squamous Epith Cells 6 H (0-4) /hpf Urine Mucus Few H (None) /hpf Disposition Clinical Impression: Abdominal pain during Disposition: HOME SELF-CARE Condition: Stable Instructions (If sedation given, give patient instructions): at 7 to 10 Weeks (ED) Additional Instructions: Please return to the Emergency Department if symptoms worsen or any other concerns. Is patient prescribed a controlled substance at d/c from ED?: No Referrals: None,Stated [Primary Care Provider] - 1-2 days Time of Disposition: 18:59
[2025-03-03 17:53] LABS: Basophils # (A) 0.03 10*3/uL (0.00-0.10); Basophils % (A) 0.3 %; Eosinophils # (A) 0.25 10*3/uL (0.04-0.35); Eosinophils % (A) 2.9 %; HGB 9.7 g/dL (12.0-15.0); Lymphocytes # (A) 2.03 10*3/uL (0.90-5.00); Lymphocytes % (A) 23.3 %; MCH 24.1 pg (27.0-32.0); MCHC 32.3 g/dL (32.0-37.0); MCV 74.4 fL (80.0-97.0); Mean Platelet Volume 9.3 fL (9.5-12.2); Monocytes # (A) 0.52 10*3/uL (0.20-1.00); Neutrophils # (A) 5.87 10*3/uL (1.80-7.70); Neutrophils % (A) 67.2 %; Platelet Count 285 10*3/uL (140-440); RBC 4.03 10*6/uL (4.10-5.20); RDW 16.4 % (11.5-14.5); WBC 8.73 10*3/uL (4.50-10.00)
[2025-03-03] MEDS: ACETAMINOPHEN TAB 325 MG TAB PO STA (17:53)
[2025-03-03] MEDS: SODIUM CHLORIDE 0.9% 1,000 ML IV ONE (17:53)
[2025-03-03] MEDS: METOCLOPRAMIDE 5 MG/ML 2 ML VIAL IVP STA (17:54)
[2025-03-03 18:08] LABS: ALT 11 U/L (4-34); AST 13 U/L (14-36); African American GFR (CKD) >90 (>60 ml/min/1.73 sqM); Albumin 3.6 g/dL (3.5-5.0); Alkaline Phosphatase 53 U/L (38-126); Anion Gap 9 mmol/L; Blood Urea Nitrogen 5 mg/dL (7-17); Calcium 9.2 mg/dL (8.4-10.2); Carbon Dioxide 24 mmol/L (22-30); Chloride 103 mmol/L (98-107); Glucose 145 mg/dL (74-99); Non-African American GFR(CKD) >90 (>60 ml/min/1.73 sqM); Potassium 3.6 mmol/L (3.5-5.1); Sodium 136 mmol/L (137-145); Total Bilirubin 0.4 mg/dL (0.2-1.3); Total Protein 6.6 g/dL (6.3-8.2)
--- NOTE | 2025-03-03 18:30 | US ---
EXAMINATION TYPE: Transabdominal DATE OF EXAM: 03/03/2025 6:15 PM COMPARISON: NONE CLINICAL INDICATION: Female, 40 years old with history of cramping, + , LMP 12/2024; patient states cramping on right side, positive test. N/V TECHNIQUE: Transabdominal (TA) with grayscale and color Doppler imaging including first trimester pre gnancy. FINDINGS: EXAM MEASUREMENTS: GESTATIONAL AGE / DATING Physician Established: Not yet established Dates by LMP: LMP unknown Dates by First Scan: No previous this is first scan Dates by Current Scan for: (10 weeks/2 days) EDC: 09/27/2025 MATERNAL ANATOMY Slightly limited exam due to body habitus Uterus: 11.9 x 8.9 x 9.0cm Right Ovary: 2.8 x 1.9 x 3.4cm Left Ovary: definite left ovarian tissue not seen, however there is a 4.9 x 5.7 x 3.6cm anechoic area seen in the left adnexa. Most consistent with a simple appearing left ovarian cyst. Post CDS / Adnexa: definite left ovarian tissue not seen, however there is a 4.9 x 5.7 x 3.6cm anecho ic area seen in the left adnexa, most consistent with a simple appearing left ovarian cyst. Presence of free fluid: not seen Presence of corpus luteal cyst: possible 1.8 x 2.1 x 2.2cm anechoic area seen within the right ovary Presence of subchorionic bleed: 1.3 x 0.9 x 1.5cm anechoic area seen anterior and to the right of the gestational sac GESTATION / SURVEY CRL: 3.4cm (10 weeks/2 days) Gestational Sac morphology: Normal Yolk Sac (normal less than 6mm): unable to visualize at this time Cardiac Activity/Heart Rate: 174 bpm Rhythm: Normal IUP: Viable IUP Date of LMP: unknown lmp Beta HcG (if available): IMPRESSION: 1. Single live intrauterine with calculated ultrasound age of 10 weeks 2 days by crown rump length with an estimated date of delivery of 09/27/2025. 2. Small subchorionic bleed. Close clinical surveillance is recommended. 3. Simple appearing left ovarian cyst. [facility], , 03/03/2025 6:27 PM
[2025-03-03 18:42] LABS: Appearance,Urine Clear (Clear); Bilirubin,Urine Negative (Negative); Blood,Urine Trace (Negative); Color,Urine Light Yellow; Glucose,Urine (UA) Negative (Negative); Ketones,Urine Negative (Negative); Leukocyte Esterase,Urine Negative (Negative); Mucus,Urine Few /hpf; Nitrite,Urine Negative (Negative); Protein,Urine Negative (Negative); RBC,Urine 1 /hpf (0-5); Specific Gravity,Urine 1.025 (1.001-1.035); Squamous Epithelial Cell,Urine 6 /hpf (0-4); WBC,Urine 2 /hpf (0-5)
[2025-03-03 19:12] VITALS: BP 110/68; PULSE 87; RESP 18; TEMP 97.8
== END 2025-03-03 19:08 | disposition home or self-care (01) ==
LOC: EC 16:05
DX: O21.9 Vomiting of pregnancy, unspecified (principal); O26.91 Pregnancy related conditions, unspecified, first trimester; Z3A.10 10 weeks gestation of pregnancy
CPT/HCPCS: 99284 ×2; 96374 ×2; 96361 ×2; 36415; 80053; 85025; 81001; 84702; 76801; J2765